=== PATIENT | female | born 1975 | race Caucasian/White ===

== ENCOUNTER 2020-05-28 12:24 | Outpatient (REF) | payer MEDICAID, SELFPAY | END 2020-05-28 12:25 | disposition home or self-care (01) | LOC: HO.LAB 12:24 | PROVIDERS: Visit Provider Internal Medicine | DX: Z20.828 Contact with and (suspected) exposure to other viral communicable diseases (principal) | CPT/HCPCS: 87635 ==

== ENCOUNTER 2020-09-13 14:50 | Outpatient (REF) | payer MEDICAID, SELFPAY ==
--- NOTE | 2020-09-13 | MM_ITS ---
EXAMINATION: MM SCREENING DIGITAL BREAST TOMOSYNTHESIS, BILATERAL CLINICAL INFORMATION: Screening. Asymptomatic. The lifetime risk of breast cancer based on the Tyrer-Cuzick Model is 9.2%. COMPARISON: Mammography: January 14, 2019 and December 26, 2017 TECHNIQUE: Digital breast tomosynthesis is performed in both the craniocaudal and mediolateral oblique views along with computer-aided detection (CAD). Synthesized 2D images are generated from the tomosynthesis. FINDINGS: The breasts are heterogeneously dense, which may obscure small masses (ACR BI-RADS breast composition Category c). There are no significant masses, abnormal calcifications, or other abnormalities. MM/MM tomosynthesis screening BI IMPRESSION: There are no significant changes from prior study. ASSESSMENT: BI-RADS 1: Negative RECOMMENDATION: Routine annual mammography screening. This patient's information was entered into a reminder system with a target due date for their next mammogram.
== END 2020-09-13 14:51 | disposition home or self-care (01) ==
LOC: HO.MAMMO 14:50
PROVIDERS: PCP Student in an Organized Health Care Education/Training Program; Visit Provider Student in an Organized Health Care Education/Training Program
DX: Z12.31 Encounter for screening mammogram for malignant neoplasm of breast (principal)
CPT/HCPCS: 77063; 77067

== ENCOUNTER → 2021-02-02 13:42 | Outpatient (BNVA) | payer MEDICAID, SELFPAY | PROVIDERS: PCP Student in an Organized Health Care Education/Training Program; Visit Provider Orthopaedic Surgery | DX: M65.331 Trigger finger, right middle finger (principal) | CPT/HCPCS: 20550; 99202; J1100 ==

== ENCOUNTER 2021-02-11 08:27 | Outpatient (REF) | payer MEDICAID, SELFPAY ==
--- NOTE | ~2021-02-11 | XR_ITS ---
EXAMINATION: XR knee standing BI, XR knee RT 2V, XR knee LT 2V CLINICAL INFORMATION: Pain in right knee. Pain in left knee. COMPARISON: None TECHNIQUE: AP bilateral standing, bilateral sunrise and bilateral lateral views of the knees. FINDINGS: Both of the lateral views were obtained with the knees fully extended, not with standard 30 degrees of flexion. No fracture, dislocation, or joint effusion seen bilaterally. Joint spaces are maintained. Mild right lateral patellar subluxation. XR/XR knee standing BI IMPRESSION: Mild right lateral patellar subluxation. Otherwise normal views of the knees bilaterally.
--- NOTE | ~2021-02-11 | XR_ITS ---
EXAMINATION: XR knee standing BI, XR knee RT 2V, XR knee LT 2V CLINICAL INFORMATION: Pain in right knee. Pain in left knee. COMPARISON: None TECHNIQUE: AP bilateral standing, bilateral sunrise and bilateral lateral views of the knees. FINDINGS: Both of the lateral views were obtained with the knees fully extended, not with standard 30 degrees of flexion. No fracture, dislocation, or joint effusion seen bilaterally. Joint spaces are maintained. Mild right lateral patellar subluxation. XR/XR knee LT 2V IMPRESSION: Mild right lateral patellar subluxation. Otherwise normal views of the knees bilaterally.
--- NOTE | ~2021-02-11 | XR_ITS ---
EXAMINATION: XR knee standing BI, XR knee RT 2V, XR knee LT 2V CLINICAL INFORMATION: Pain in right knee. Pain in left knee. COMPARISON: None TECHNIQUE: AP bilateral standing, bilateral sunrise and bilateral lateral views of the knees. FINDINGS: Both of the lateral views were obtained with the knees fully extended, not with standard 30 degrees of flexion. No fracture, dislocation, or joint effusion seen bilaterally. Joint spaces are maintained. Mild right lateral patellar subluxation. XR/XR knee RT 2V IMPRESSION: Mild right lateral patellar subluxation. Otherwise normal views of the knees bilaterally.
== END 2021-02-11 08:28 | disposition home or self-care (01) ==
LOC: HO.LAB 08:27
PROVIDERS: PCP Student in an Organized Health Care Education/Training Program; Visit Provider Physician Assistant
DX: M25.562 Pain in left knee (principal); M17.11 Unilateral primary osteoarthritis, right knee
CPT/HCPCS: 73560; 73565; 99202

== ENCOUNTER 2021-02-25 08:29 | Outpatient (REF) | payer MEDICAID, SELFPAY ==
[2021-02-26 13:42] LABS: H Pylori Breath Test DETECTED (NOT DETECTED)
== END 2021-02-25 08:30 | disposition home or self-care (01) ==
LOC: HO.LNP 08:29
PROVIDERS: PCP Student in an Organized Health Care Education/Training Program; Visit Provider Surgery
DX: Z01.818 Encounter for other preprocedural examination (principal); R07.9 Chest pain, unspecified; E66.9 Obesity, unspecified; Z68.39 Body mass index [BMI] 39.0-39.9, adult
CPT/HCPCS: 83013; 99202

== ENCOUNTER 2021-03-04 09:10 | Outpatient (REF) | payer MEDICAID, SELFPAY ==
--- NOTE | ~2021-03-04 | XR_ITS ---
EXAMINATION: XR CHEST CLINICAL INFORMATION: Shortness of breath COMPARISON: Previous chest and right rib x-ray April 2020 TECHNIQUE: 2 views of the chest were obtained. FINDINGS: No significant abnormality is noted involving the heart, lungs, mediastinum, bony thorax or soft tissues. XR/XR chest 2V IMPRESSION: Unremarkable examination.
--- NOTE | 2021-03-04 09:42 | ECG_ITS ---
Test Reason : SOB Blood Pressure : / mmHG Vent. Rate : 084 BPM Atrial Rate : 084 BPM P-R Int : 100 ms QRS Dur : 096 ms QT Int : 420 ms P-R-T Axes : 026 028 023 degrees QTc Int : 496 ms Sinus rhythm with short KS Nonspecific ST abnormality Prolonged QT Abnormal ECG No previous ECGs available Referred By: Melvi Salazar Electronically Signed By:
[2021-03-04 10:19] LABS: Hematocrit 38.3 % (37-47); Neutrophils Percent Auto 47.3 % (45-73); PLT CLUMP 1; Red Cell Distribution Width 14.1 % (11.0-16.0); SCAN SMEAR FLAG 1
[2021-03-04 10:21] LABS: Basophils Percent Auto 0.4 % (0-2); Eosinophils Absolute Auto 0.1 X10*3/uL (0.0-0.4); Eosinophils Percent Auto 2.1 % (0-4); Hemoglobin 12.7 g/dl (12.0-16.0); Imm Gran Abs Auto 0.01 X10*3/uL (0.00-0.03); Imm Gran Pct Auto 0.2 % (0.0-0.4); Lymphocytes Absolute Auto 2.4 X10*3/uL (1.2-4.9); Lymphocytes Percent Auto 41.9 % (20-40); Mean Corpuscular HGB Conc 33.2 g/dl (31.0-35.0); Mean Corpuscular Hemoglobin 27.9 pg (27.0-33.0); Monocytes Absolute Auto 0.5 X10*3/uL (0.1-1.2); Monocytes Percent Auto 8.1 % (2-11); Neutrophils Absolute Auto 2.7 X10*3/uL (2.0-8.3); Platelet Count 220 X10*3/uL (160-400); Red Blood Count 4.56 X10*6/uL (4.20-5.50); White Blood Count 5.7 X10*3/uL (4.8-10.8)
[2021-03-04 10:32] LABS: MANUAL DIFF FLAG SCAN
[2021-03-04 10:37] LABS: Alanine Aminotransferase 18 U/L (0-31); Albumin Level 4.5 g/dL (3.5-5.0); Alkaline Phosphatase 107 U/L (39-117); Anion Gap 13 (12-20); Aspartate Amino Transferase 23 U/L (5-31); Bilirubin Total 0.6 mg/dL (0.0-1.0); Blood Urea Nitrogen 20 mg/dL (9-16); C Reactive Protein 0.45 mg/dL (< or = 0.50); Calcium 9.6 mg/dL (8.4-10.2); Carbon Dioxide 26 mmol/L (22-29); Chloride 106 mmol/L (96-108); Cholesterol 220 mg/dL; Estimated Glomerular Filt Rate > 60; Glucose Fasting 92 mg/dL (60-99); HDL Cholesterol 60 mg/dL; Iron 70 mcg/dL (30-160); LDL Cholesterol Calculated 141 mg/dl; Percent Iron Saturation 18 % (15-50); Potassium 4.2 mmol/L (3.3-5.1); Sodium 141 mmol/L (135-145); Total Iron Binding Capacity 383 mcg/dL (228-428); Total Protein 7.7 g/dL (6.5-8.0); Triglycerides 95 mg/dL; Unsaturated Iron Binding 313 ug/dL
[2021-03-04 10:47] LABS: Estimated Average Glucose 117 mg/dL; Hemoglobin A1c % 5.7 %
[2021-03-04 11:01] LABS: Thyroid Stimulating Hormone 3.88 uIU/mL (0.32-4.0); Vitamin D 25-OH Total 18.1 ng/mL (>30)
[2021-03-04 11:08] LABS: SLIDE REVIEW VERIFIED
[2021-03-04 11:49] LABS: Vitamin B12 562 pg/mL (200-900)
[2021-03-07 16:20] LABS: Calcium (PTHI) 9.4 mg/dL (8.6-10.2); PTHI 72 pg/mL (14-64)
[2021-03-09 01:42] LABS: Zinc 71 mcg/dL (60-130)
[2021-03-09 11:56] LABS: Vitamin B1 9 nmol/L (8-30)
[2021-03-10 03:32] LABS: Vitamin A 48 mcg/dL (38-98)
== END 2021-03-04 09:11 | disposition home or self-care (01) ==
LOC: HO.LAB 09:10
PROVIDERS: Visit Provider Surgery
DX: Z01.818 Encounter for other preprocedural examination (principal); R06.02 Shortness of breath; R94.31 Abnormal electrocardiogram [ECG] [EKG]; K91.2 Postsurgical malabsorption, not elsewhere classified; E55.9 Vitamin D deficiency, unspecified; Z90.3 Acquired absence of stomach [part of]
CPT/HCPCS: 36415; 71046; 80053; 80061; 82306; 82607; 83036; 83540; 83970; 84425; 84443; 84590; 84630; 85025; 86140; 93005

== ENCOUNTER → 2021-03-08 08:09 | Outpatient (BNVA) | payer MEDICAID, SELFPAY | PROVIDERS: PCP Student in an Organized Health Care Education/Training Program; Visit Provider Surgery | DX: E66.9 Obesity, unspecified (principal); Z68.38 Body mass index [BMI] 38.0-38.9, adult | CPT/HCPCS: 99212 ==

== ENCOUNTER → 2021-03-25 08:00 | Outpatient (BNVA) | payer MEDICAID, SELFPAY | PROVIDERS: PCP Student in an Organized Health Care Education/Training Program; Visit Provider Dietitian, Registered | DX: E66.09 Other obesity due to excess calories (principal); F41.8 Other specified anxiety disorders; F31.9 Bipolar disorder, unspecified; Z68.37 Body mass index [BMI] 37.0-37.9, adult; Z88.6 Allergy status to analgesic agent | CPT/HCPCS: 97802 ==

== ENCOUNTER → 2021-04-14 11:10 | Outpatient (BNVA) | payer MEDICAID, SELFPAY | PROVIDERS: PCP Student in an Organized Health Care Education/Training Program; Visit Provider Internal Medicine Cardiovascular Disease | DX: Z01.818 Encounter for other preprocedural examination (principal); R07.89 Other chest pain | CPT/HCPCS: 93005; 99202 ==

== ENCOUNTER → 2021-05-05 10:41 | Outpatient (BNVA) | payer MEDICAID, SELFPAY | PROVIDERS: PCP Student in an Organized Health Care Education/Training Program; Visit Provider Surgery | DX: E66.9 Obesity, unspecified (principal); Z68.36 Body mass index [BMI] 36.0-36.9, adult | CPT/HCPCS: 99212 ==

== ENCOUNTER → 2021-07-04 10:24 | Outpatient (BNVA) | payer MEDICAID, SELFPAY | PROVIDERS: PCP Student in an Organized Health Care Education/Training Program; Referring Provider Student in an Organized Health Care Education/Training Program; Visit Provider Physician Assistant Surgical | DX: E66.9 Obesity, unspecified (principal); Z68.36 Body mass index [BMI] 36.0-36.9, adult | CPT/HCPCS: 99212 ==

== ENCOUNTER 2021-07-06 15:59 | Outpatient (REF) | payer MEDICAID, SELFPAY ==
[2021-07-08 07:18] LABS: H Pylori Breath Test Negative (Negative)
== END 2021-07-06 16:00 | disposition home or self-care (01) ==
LOC: HO.LNP 15:59
PROVIDERS: Visit Provider Surgery
DX: Z01.818 Encounter for other preprocedural examination (principal); A04.8 Other specified bacterial intestinal infections
CPT/HCPCS: 83013

== ENCOUNTER 2021-08-13 14:33 | Outpatient (REF) | payer MEDICAID, SELFPAY ==
[2021-08-13 16:12] LABS: Binax Internal Control QC Valid; Binax Lot number: 9864; Binax Now Covid-19 Ag Negative (Negative)
== END 2021-08-13 14:34 | disposition home or self-care (01) ==
LOC: HO.LAB 14:33
PROVIDERS: Visit Provider Internal Medicine
DX: Z20.822 Contact with and (suspected) exposure to COVID-19 (principal)
CPT/HCPCS: 36415; C9803

== ENCOUNTER 2022-03-16 10:44 | Outpatient (REF) | payer MEDICAID, SELFPAY ==
[2022-03-18 11:15] LABS: H Pylori Breath Test Negative (Negative)
== END 2022-03-16 10:45 | disposition home or self-care (01) ==
LOC: HO.LNP 10:44
PROVIDERS: PCP Student in an Organized Health Care Education/Training Program; Visit Provider Physician Assistant Surgical
DX: E66.9 Obesity, unspecified (principal)
CPT/HCPCS: 83013; 99212

== ENCOUNTER 2022-04-12 08:25 | Outpatient (REF) | payer MEDICAID, SELFPAY ==
--- NOTE | 2022-04-12 08:30 | ECG_ITS ---
Test Reason : obesity Blood Pressure : / mmHG Vent. Rate : 091 BPM Atrial Rate : 091 BPM P-R Int : 140 ms QRS Dur : 090 ms QT Int : 408 ms P-R-T Axes : 060 046 047 degrees QTc Int : 501 ms Normal sinus rhythm Prolonged QT Abnormal ECG When compared with ECG of 04-MAR-2021 09:48, No significant change was found Referred By: Ronal Lundberg Electronically Signed By:VARGAS MUNSON
[2022-04-12 08:45] LABS: MANUAL DIFF FLAG NO
[2022-04-12 09:37] LABS: Basophils Percent Auto 0.5 % (0-2); Eosinophils Absolute Auto 0.3 X10*3/uL (0.0-0.4); Eosinophils Percent Auto 5.3 % (0-4); Hematocrit 37.6 % (37.0-47.0); Hemoglobin 12.7 g/dl (12.0-16.0); Imm Gran Abs Auto 0.01 X10*3/uL (0.00-0.03); Imm Gran Pct Auto 0.2 % (0.0-0.4); Lymphocytes Absolute Auto 2.5 X10*3/uL (1.2-4.9); Lymphocytes Percent Auto 40.1 % (20-40); Mean Corpuscular HGB Conc 33.8 g/dl (31.0-35.0); Mean Corpuscular Hemoglobin 28.7 pg (27.0-33.0); Mean Corpuscular Volume 84.9 fL (80.0-98.0); Mean Platelet Volume 10.5 fL (9.4-12.3); Monocytes Absolute Auto 0.4 X10*3/uL (0.1-1.2); Neutrophils Percent Auto 47.9 % (45-73); Platelet Count 253 X10*3/uL (160-400); Red Blood Count 4.43 X10*6/uL (4.20-5.50); Red Cell Distribution Width 13.3 % (11.0-16.0); White Blood Count 6.2 X10*3/uL (4.8-10.8)
[2022-04-12 09:45] LABS: Estimated Average Glucose 105 mg/dL; Hemoglobin A1c % 5.3 %
[2022-04-12 10:07] LABS: Alanine Aminotransferase 10 U/L (0-31); Albumin Level 4.2 g/dL (3.5-5.0); Alkaline Phosphatase 79 U/L (39-117); Anion Gap 14 (12-20); Aspartate Amino Transferase 15 U/L (5-31); Bilirubin Total 0.5 mg/dL (0.0-1.0); Blood Urea Nitrogen 11 mg/dL (9-16); C Reactive Protein 0.61 mg/dL (< or = 0.50); Calcium 8.7 mg/dL (8.4-10.2); Carbon Dioxide 25 mmol/L (22-29); Chloride 105 mmol/L (96-108); Cholesterol 225 mg/dL; Estimated Glomerular Filt Rate > 60; Glucose Random 94 mg/dL (60-115); HDL Cholesterol 56 mg/dL; Iron 54 mcg/dL (30-160); LDL Cholesterol Calculated 145 mg/dl; Percent Iron Saturation 16 % (15-50); Potassium 3.7 mmol/L (3.3-5.1); Sodium 140 mmol/L (135-145); Total Iron Binding Capacity 330 mcg/dL (228-428); Triglycerides 121 mg/dL; Unsaturated Iron Binding 276 ug/dL
[2022-04-12 10:35] LABS: Ferritin 21 ng/mL (10-250); TSH reflex Free T4 6.07 uIU/mL (0.32-4.0); Vitamin D 25-OH Total 17.1 ng/mL (>30)
[2022-04-12 10:47] LABS: Folate 10.3 ng/mL (> or = 4.0); Vitamin B12 471 pg/mL (200-900)
[2022-04-12 11:09] LABS: Free T4 (Free Thyroxine) 0.94 ng/dL (0.71-1.85); Insulin 16 uU/mL (2-29)
[2022-04-13 12:26] LABS: PTHI 62 pg/mL (16-77)
[2022-04-15 15:20] LABS: Zinc 66 mcg/dL (60-130)
[2022-04-17 13:37] LABS: Vitamin B1 9 nmol/L (8-30)
[2022-04-20 20:26] LABS: Vitamin A 48 mcg/dL (38-98)
== END 2022-04-12 08:26 | disposition home or self-care (01) ==
LOC: HO.LAB 08:25
PROVIDERS: PCP Student in an Organized Health Care Education/Training Program; Visit Provider Physician Assistant Surgical
DX: E66.9 Obesity, unspecified (principal)
CPT/HCPCS: 36415; 80053; 80061; 82306; 82607; 82728; 82746; 83036; 83525; 83540; 83970; 84425; 84439; 84443; 84590; 84630; 85025; 86140; 93005

== ENCOUNTER 2022-04-13 09:27 | Outpatient (REF) | payer MEDICAID, SELFPAY ==
--- NOTE | ~2022-04-13 | FL_ITS ---
EXAMINATION: XR FLUOROSCOPY UPPER GI WITH AIR CLINICAL INFORMATION: Obesity COMPARISON: None TECHNIQUE: Fluoroscopic assessment of the upper GI tract was performed in various upright and supine/prone obliquities utilizing thin and thick high density barium contrast material and effervescent granules. FINDINGS: The esophagus was normal in course, caliber, and contour. There was normal distensibility with no fixed segment of narrowing. No focal mucosal abnormality was identified. No significant esophageal dysmotility was observed. Contrast passed freely across the gastroesophageal junction into the stomach. Small sliding hiatal hernia. This spans the length of approximately 2 vertebral bodies. There was normal distensibility of the stomach with no focal abnormality identified. There was prompt gastric emptying into the duodenum which demonstrated a normal appearance. No gastroesophageal reflux was observed. FLUOROSCOPY TIME: 0.9 minutes DOSE AREA PRODUCT: 18.792 Gy-cm2 (conn-centimeter squared) FL/FL upper GI w air IMPRESSION: Small sliding hiatal hernia. Otherwise unremarkable upper GI examination.
--- NOTE | ~2022-04-13 | XR_ITS ---
EXAMINATION: XR CHEST CLINICAL INFORMATION: Bariatric service evaluation, E66.9. COMPARISON: Chest radiographs 03/04/2021, 05/07/2020 TECHNIQUE: 2 views of the chest were obtained. FINDINGS: Lungs are clear. There is no hyperinflation, airspace consolidation, groundglass opacity, or effusion. The costophrenic sulci are clear. The heart is normal in size. The hilar and mediastinal contours and bony structures are unremarkable. XR/XR chest 2V IMPRESSION: Unremarkable examination.
== END 2022-04-13 09:28 | disposition home or self-care (01) ==
LOC: HO.US 09:27
PROVIDERS: PCP Student in an Organized Health Care Education/Training Program; Visit Provider Pediatrics
DX: E66.9 Obesity, unspecified (principal)
CPT/HCPCS: 71046; 74246; 97802

== ENCOUNTER 2022-04-21 08:10 | Outpatient (REF) | payer MEDICAID, SELFPAY ==
--- NOTE | ~2022-04-21 | US_ITS ---
EXAMINATION: US COMPLETE ABDOMEN WITH LIVER ELASTOGRAPHY CLINICAL INFORMATION: Obesity. COMPARISON: None. TECHNIQUE: Real-time imaging of the abdominal viscera. Noninvasive ultrasound liver fibrosis assessment is performed using Jean ElastPQ point quantification shear wave elastography (2D-SWE) with a C5-2 MHz transducer. Multiple elastography samples are obtained. FINDINGS: PANCREAS: The pancreatic duct measures 0.2 cm and is unremarkable. The visualized pancreatic head and body are normal in appearance. The remainder of the pancreas is obscured from visualization by the overlying bowel gas. ABDOMINAL AORTA: The proximal, middle, and distal aortic segments are normal in caliber. INFERIOR VENA CAVA: Visualized portions are normal. LIVER: Normal. The liver demonstrates normal size, contour and echogenicity. No focal lesion or intrahepatic biliary duct dilatation. The right lobe measures 17.1 cm in length. The left lobe measures 12.3 cm in length. Portal flow is hepatopedal. Shear wave liver elastography median stiffness is 1.34 m/s (reference: normal median stiffness is 1.3 m/s or less). IQR/median stiffness to assess sampling precision is 0.06 (reference: good quality data set is IQR/median stiffness of 0.15 or less). GALLBLADDER: The gallbladder is physiologically distended without evidence of stones, sludge, wall thickening or pericholecystic fluid. There are nonmobile echogenic polyps measuring 0.4 x 0.2 x 0.3 cm. COMMON BILE DUCT: Normal in caliber measuring 0.7 cm in diameter. RIGHT KIDNEY: Normal. No hydronephrosis. No renal calculi or focal parenchymal lesions. The kidney measures 10.7 cm in maximum dimension. LEFT KIDNEY: There is an echogenic stone in the upper pole measuring 0.7 x 0.4 x 0.5 cm. The kidney measures 10.2 cm in maximum dimension. SPLEEN: Normal. The spleen measures 10.3 cm in maximum dimension. FREE FLUID: None. US/US abdomen comp w elastography IMPRESSION: 1. Small gallbladder polyp. No echogenic stones or wall thickening. 2. Normal echogenicity of liver with normal hepatopedal flow. 3. Nonobstructive echogenic stone upper pole left kidney. 4. Liver elastography: Median liver stiffness 1.34 corresponding to high probability normal . REFERENCE: Society of Radiologists in Ultrasound Liver Stiffness Thresholds (2019): LIVER STIFFNESS THRESHOLDS: *Liver Stiffness equal or less than 1.3 m/s: High probability of being normal. *Liver Stiffness less than 1.7 m/s: In the absence of other known clinical signs, rules out compensated advanced chronic liver disease. *Liver Stiffness 1.7-2.1 m/s: Suggestive of compensated advanced chronic liver disease but need further test for confirmation. *Liver Stiffness over 2.1 m/s: Rules in compensated advanced chronic liver disease. *Liver Stiffness over 2.4 m/s: Suggestive of clinically significant portal hypertension. QUALITY OF DATA SET: *IQR/Median value equal or less than 0.15 implies a quality data set. *IQR/Median value over 0.15 implies a poor quality data set. SIGNIFICANT CHANGE FROM PRIOR EXAM: Significant change if liver stiffness measurement is 10% or greater from prior exam. OTHER CONSIDERATIONS: The stage of liver fibrosis may be overestimated in the setting of acute hepatitis, liver inflammation, elevated liver function tests, hepatic vascular congestion, obstructive cholestasis, non-fasting state, and infiltrative diseases such as amyloidosis and lymphoma. In some patients with NAFLD, the liver stiffness thresholds for compensated advanced chronic liver disease may be lower. In causes other than viral hepatitis and NAFLD, liver stiffness thresholds are not well established.
== END 2022-04-21 08:11 | disposition home or self-care (01) ==
LOC: HO.US 08:10
PROVIDERS: Visit Provider Physician Assistant Surgical
DX: E66.9 Obesity, unspecified (principal)
CPT/HCPCS: 76705; 76981

== ENCOUNTER → 2022-04-26 09:47 | Outpatient (BNVA) | payer MEDICAID, SELFPAY | PROVIDERS: PCP Student in an Organized Health Care Education/Training Program; Referring Provider Student in an Organized Health Care Education/Training Program; Visit Provider Physician Assistant Surgical | DX: E66.9 Obesity, unspecified (principal); Z68.38 Body mass index [BMI] 38.0-38.9, adult; F32.9 Major depressive disorder, single episode, unspecified; E03.9 Hypothyroidism, unspecified | CPT/HCPCS: 99212 ==

== ENCOUNTER → 2022-05-01 08:59 | Outpatient (BNVA) | payer MEDICAID, SELFPAY | PROVIDERS: PCP Student in an Organized Health Care Education/Training Program; Referring Provider Student in an Organized Health Care Education/Training Program; Visit Provider Internal Medicine Cardiovascular Disease | DX: Z01.818 Encounter for other preprocedural examination (principal); R94.31 Abnormal electrocardiogram [ECG] [EKG] | CPT/HCPCS: 93005; 99212 ==

== ENCOUNTER → 2022-06-05 08:25 | Outpatient (BNVA) | payer MEDICAID, SELFPAY | PROVIDERS: PCP Student in an Organized Health Care Education/Training Program; Visit Provider Physician Assistant Surgical | DX: E66.9 Obesity, unspecified (principal); E03.9 Hypothyroidism, unspecified; Z68.38 Body mass index [BMI] 38.0-38.9, adult | CPT/HCPCS: 99212 ==

== ENCOUNTER → 2022-06-08 09:09 | Outpatient (BNVA) | payer MEDICAID, SELFPAY | PROVIDERS: PCP Student in an Organized Health Care Education/Training Program; Referring Provider Physician Assistant Surgical; Visit Provider Dietitian, Registered | DX: E66.9 Obesity, unspecified (principal); Z68.38 Body mass index [BMI] 38.0-38.9, adult | CPT/HCPCS: 97803 ==

== ENCOUNTER → 2023-04-25 08:19 | Outpatient (BNVA) | payer MEDICAID, SELFPAY | PROVIDERS: PCP Student in an Organized Health Care Education/Training Program; Visit Provider Physician Assistant Surgical ==

== ENCOUNTER 2023-05-25 08:47 | Outpatient (REF) | payer MEDICAID, SELFPAY ==
[2023-05-25 09:48] LABS: MANUAL DIFF FLAG NO
[2023-05-25 11:26] LABS: Basophils Percent Auto 0.3 % (0-2); Eosinophils Absolute Auto 0.2 X10*3/uL (0.0-0.4); Hematocrit 41.2 % (37.0-47.0); Hemoglobin 13.3 g/dl (12.0-16.0); Imm Gran Abs Auto 0.03 X10*3/uL (0.00-0.03); Imm Gran Pct Auto 0.5 % (0.0-0.4); Lymphocytes Absolute Auto 2.1 X10*3/uL (1.2-4.9); Lymphocytes Percent Auto 32.9 % (20-40); Mean Corpuscular HGB Conc 32.3 g/dl (31.0-35.0); Mean Corpuscular Hemoglobin 28.5 pg (27.0-33.0); Mean Corpuscular Volume 88.2 fL (80.0-98.0); Mean Platelet Volume 10.3 fL (9.4-12.3); Monocytes Absolute Auto 0.4 X10*3/uL (0.1-1.2); Monocytes Percent Auto 6.4 % (2-11); Neutrophils Absolute Auto 3.7 x10*3/uL (2.0-8.3); Neutrophils Percent Auto 56.9 % (45-73); Platelet Count 291 X10*3/uL (160-400); Red Blood Count 4.67 X10*6/uL (4.20-5.50); Red Cell Distribution Width 13.3 % (11.0-16.0); White Blood Count 6.4 X10*3/uL (4.8-10.8)
[2023-05-25 12:05] LABS: Estimated Average Glucose 120 mg/dL; Hemoglobin A1c % 5.8 % (<6.0)
[2023-05-25 12:38] LABS: Alanine Aminotransferase 14 U/L (0-31); Albumin Level 4.4 g/dL (3.5-5.0); Alkaline Phosphatase 71 U/L (39-117); Anion Gap 14 (12-20); Aspartate Amino Transferase 14 U/L (5-31); Bilirubin Total 0.4 mg/dL (0.0-1.0); Blood Urea Nitrogen 15 mg/dL (9-16); C Reactive Protein 0.79 mg/dL (< or = 0.50); Calcium 9.9 mg/dL (8.4-10.2); Carbon Dioxide 24 mmol/L (22-29); Chloride 106 mmol/L (96-108); Cholesterol 237 mg/dL (<200); Estimated Glomerular Filt Rate > 60; Glucose Random 101 mg/dL (60-115); HDL Cholesterol 57 mg/dL (>40); Iron 58 mcg/dL (30-160); LDL Cholesterol Calculated 149 mg/dL (<100); Percent Iron Saturation 20 % (15-50); Potassium 4.4 mmol/L (3.3-5.1); Sodium 140 mmol/L (135-145); Total Iron Binding Capacity 295 mcg/dL (228-428); Total Protein 7.8 g/dL (6.5-8.0); Triglycerides 155 mg/dL (<150); Unsaturated Iron Binding 237 ug/dL
[2023-05-25 12:42] LABS: Ferritin 29 ng/mL (10-250); Insulin 39 uU/mL (2-29); TSH reflex Free T4 3.47 uIU/mL (0.32-4.0)
[2023-05-25 12:55] LABS: Folate 8.7 ng/mL (> or = 4.0); Vitamin B12 307 pg/mL (200-900)
[2023-05-28 23:44] LABS: Calcium (PTHI) 9.7 mg/dL (8.6-10.2); PTHI 56 pg/mL (16-77)
[2023-05-29 01:12] LABS: Zinc 78 mcg/dL (60-130)
[2023-05-30 04:49] LABS: Vitamin A 60 mcg/dL (38-98)
[2023-05-30 15:19] LABS: Vitamin B1 12 nmol/L (8-30)
== END 2023-05-25 08:48 | disposition home or self-care (01) ==
LOC: HO.LAB 08:47
PROVIDERS: PCP Student in an Organized Health Care Education/Training Program; Visit Provider Physician Assistant Surgical
DX: E66.01 Morbid (severe) obesity due to excess calories (principal); Z68.38 Body mass index [BMI] 38.0-38.9, adult
CPT/HCPCS: 36415; 80053; 80061; 82306; 82607; 82728; 82746; 83036; 83525; 83540; 83970; 84425; 84443; 84590; 84630; 85025; 86140; 99212

== ENCOUNTER 2023-05-25 08:47 | Outpatient (AMB) | payer MEDICAID, SELFPAY ==
--- NOTE | 2023-05-25 08:49 | MHC.OFFVISWM ---
Intake VS Expanded 05/25/23 08:55 BP 136/73 Blood Pressure Location Rt brachial Blood Pressure Position Sitting Pulse 88 Pulse Source Pulse Oximeter Temp 96.8 F Temperature Source Temporal Artery Scan Pulse Oximetry 98 Oxygen Delivery Method Room Air Height 4 ft 9 in Weight 203 lb 12.8 oz BMI 44.1 Body Fat % 47.0 Body Fat Mass 95.6 Fat Free Mass 108.0 Visceral Fat Rating 15.0 Body Water % 37.9 Body Water Mass 77.2 Muscle Mass/Score 102.6 Basal Metabolic Rate/Score 1,537 Intake Visit Reasons: (OV) Re-Est SWL BMI 44.3 Day Care Home Provider Required: Yes Day Care Home Provider Name: office cmi Allergies aspirin [ASPIRIN] Allergy (Severe, Verified 05/25/23 08:53) ANAPHYLAXIS Medication List - Last Reconciled 05/25/23 by JARRETT Esteban aripiprazole 10 mg PO DAILY cholecalciferol (vitamin D3) 125 mcg PO DAILY doxepin 150 mg PO BEDTIME levothyroxine 25 mcg PO QAM lorazepam (Ativan) 1 mg PO DAILY PRN pantoprazole 40 mg PO DAILY venlafaxine ER 150 mg PO QAM HPI HPI Comments History of Present Illness Details [place] is [place] [facility] [place]. This is the third attempt at our program. She was seen 03/02-07/04 (14.6 pound weight loss), 04/03-06/03 (5 pound weight loss). She had family problems and had to take care of her mom. Her mom on May 13 and encouraged her to lose weight. Current weight is 203.8 pounds with a BMI of 44.1. She has tried multiple methods of weight loss including multiple attempts at our SWL program without permanent results. She is not currently working. She wakes at:?530 am, and goes to bed at?9 pm. Dinner is at 5 pm. Breakfast: coffee w 2 % milk and splenda AM snack: crackers Lunch: skip PM snack: skip Dinner: rice beans meat or fast food After dinner: cake, crackers Other snacks: as above Liquids: 64-80 oz water, no soda, no juice Alcohol/marijuana/tobacco intake: none Exercise: none, has treadmill at home [facility] Medical History Bipolar disorder Depression Anxiety Surgical History History of tubal ligation History of 2 sections Family History Mother Diabetes Hx of heart surgery Hypertension High cholesterol Father Heart attack Brother Hypertension Sister Hypertension Sister Hypertension Daughter No problems noted. Son No problems noted. Son No problems noted. Social History Alcohol intake: former Patient Tobacco Use Status: Never used Tobacco Current occupational status: employed and unemployed Current occupation: [employer] Current occupational exposures/hazards: No Physical Exam Vital Signs: Last Vital Signs Temp 96.8 F 05/25/23 08:55 Pulse 88 05/25/23 08:55 BP 136/73 05/25/23 08:55 Pulse Ox 98 05/25/23 08:55 Oxygen Delivery Method Room Air 05/25/23 08:55 BMI result Body Mass Index 44.1 Const General: cooperative, healthy appearing and no acute distress Orientation/consciousness: patient oriented x3 HEENT Head: Yes normal to inspection Ears: hearing grossly normal bilaterally General nose exam: Normal external nose present Face and sinus: Yes normal facial exam Eyes General: appearance normal, both eyes and all related structures Resp Effort & Inspection: normal respiratory effort Auscultation: clear to auscultation bilaterally Cardio Rate: regular rate Rhythm: regular rhythm Heart sounds: S1 normal heart sound present and S2 normal heart sound present GI Inspection: Yes normal to inspection, No distended and Yes obesity Palpation (GI): Soft to palpation, nontender and no guarding Auscultation: normal bowel sounds Skin General skin exam: no rashes or lesions noted Neuro General: patient oriented x3 Extrem General: No edema Psych Appearance: grossly normal Mental Status: mental status grossly normal Speech and movement: Normal speech and movement present Affect: normal affect Attitude: cooperative Assessment & Plan Assessment & Plan (1) Morbid obesity: Code(s): E66.01 - Morbid (severe) obesity due to excess calories Plan: This is a?47 yo female who will re-start our SWL program to prepare for bariatric surgery.? It was discussed with the patient that if she is able to show commitment over the next 1 month, we will then order the standard lood work, h pylori , CXR, ECG, Abd US and UGI. She will be scheduled for RD and BH initial consultations at her next appointment she is able to show commitment. ? Adequate sleep of 7-8 hours per night discussed, awakening at 530 am and going to bed at 9 pm ? You stated you still have your body composition scale so be sure and check weight weekly. The best time to do this is first thing in the morning after going to the bathroom. 1. Nutritional counseling: Be sure to careful read the number of scoops per shake Start with 2 Celebrate Rebuild shakes ([facility] [employer], [employer], [employer]), First shake (1 scoop in 10 oz unsweetened almond milk) at 630am-830am, Second shake, (1 scoop in 10 oz unsweetened almond milk) at 930am-1130am 2 protein bars ([employer] bars at [facility] [employer], [employer], [employer]) at 1230pm-230pm, and at 330pm-530pm Dinner at 630pm (7 forks of protein and 7 forks of salad/vegetables). Meal to include lean meat (beef, fish, pork, turkey, chicken), cooked vegetables or a salad with olive oil and/or fruits (berries, pears, apples, kiwi). Avoid salt, breads, potatoes, rice, pasta, desserts. Try to drink 64 oz of water daily and avoid soda and juices. ?2. Each shake would be drunk slowly, like coffee in a period of 2 hours. ?3. Cut each bar in 4 pieces and eat each piece in 30 min ?to make each bar last 2 hours. ?4. I emphasized the importance of measuring accurately the food portion and measure it carefully when serving the food on the plate ?5. The meal portions include 7 full-size forks of meat and 7 full-size forks of salad. You always eat the meat portion but you can replace up to half of the forks of salad/vegetables with rice, potatoes or pasta, or a fruit ?if you like. The less you do it the better weight loss will be. ?6. One full-size fork is what can be scooped on the fork without falling aside and not what can be bit with the fork. Use regular forks like those you find in a typical restaurant. ?7.? Please send me weight measurements as soon as possible and then once a week. Always include your diet and exercise plan. Alternatively come weekly at the office for weight checks and send me the measurements. ?8. Exercise counseling: Begin by watching a stretching for beginners video. Start slowly and begin to stretch your muscles. You should do this before and after each exercise session to prevent injury. Consider joining [employer] gym near your home. Ask the manager machine or one of the trainers how to use the machines if you are unfamiliar with them. Start elliptical with a resistance of 2. Increase resistance by 1 every 3 min to your most comfortable resistance with a max resistance of 8. Reduce the resistance by 1 every 3 minutes back down to 2 and repeat cycles for 300 calories. Alternatively, start using the treadmill you have at home with a speed of 3.0 and incline of 0, increasing incline by 1 every 3 minutes to the highest comfortable level (max 6 for now) then decrease in the same fashion. Repeat process to a goal of 300 calories. Goal of 2000 calories burned or more weekly. You may also consider use of the stationary bike. The easiest would be to chose the fat-burn or interval training program on the machine and do this until you reach the 300 calorie goal. Alternatively, you can manually adjust the resistance in a similar fashion as mentioned above, (resistance of 2-8 with a goal speed of 12 mph). Tracking calories is essential. 9. Alternatively start walking outside daily, tracking calories with a goal of 300 calories per day, daily. You can download the rasta [employer] which can track your time, distance and calories while walking outside. You press start in the rasta when you start and then stop when you are finished. 10.? It is important to avoid for at least 18 months postoperatively and it has been discussed at the information session 11. Please get labs, EKG and chest X-Ray within 1 week. 12. Discussed and answered all questions regarding?obtained consent to participate in the [place] [facility]?Registry. 13. Please follow the diet plan exactly, without any change. If you do not like something about the plan or you feel hungry, you need to communicate with me so I can help you revise the plan. You should not change the plan yourself. Text me at [phone] 14. Goal is to lose at least 12 pounds in the first month 15. Goal is to lose 10% of your weight before surgery, which is about 20 lbs. Ultimate weight goal: 183 lbs or more before surgery Patient is morbidly obese and is not considered stable at this time.?I spent a total of 70 minutes reviewing/updating records, examining the patient and counseling the patient on weight management as detailed above. Orders: Orders Insulin Today E66.01 - Morbid (severe) obesity due to excess calories, Z68.38 - Body mass index [BMI] 38.0-38.9, adult Complete Blood Count Auto Diff Today E66.01 - Morbid (severe) obesity due to excess calories, Z68.38 - Body mass index [BMI] 38.0-38.9, adult Vitamin B12 and Folate Today E66.01 - Morbid (severe) obesity due to excess calories, Z68.38 - Body mass index [BMI] 38.0-38.9, adult Zinc Today E66.01 - Morbid (severe) obesity due to excess calories, Z68.38 - Body mass index [BMI] 38.0-38.9, adult Comprehensive Met. Panel Today E66.01 - Morbid (severe) obesity due to excess calories, Z68.38 - Body mass index [BMI] 38.0-38.9, adult Vitamin B1 Today E66.01 - Morbid (severe) obesity due to excess calories, Z68.38 - Body mass index [BMI] 38.0-38.9, adult Vitamin A Today E66.01 - Morbid (severe) obesity due to excess calories, Z68.38 - Body mass index [BMI] 38.0-38.9, adult C Reactive Protein Today E66.01 - Morbid (severe) obesity due to excess calories, Z68.38 - Body mass index [BMI] 38.0-38.9, adult Hemoglobin A1c Today E66.01 - Morbid (severe) obesity due to excess calories, Z68.38 - Body mass index [BMI] 38.0-38.9, adult Lipid Panel Today E66.01 - Morbid (severe) obesity due to excess calories, Z68.38 - Body mass index [BMI] 38.0-38.9, adult IRON PROFILE Today E66.01 - Morbid (severe) obesity due to excess calories, Z68.38 - Body mass index [BMI] 38.0-38.9, adult Ferritin Today E66.01 - Morbid (severe) obesity due to excess calories, Z68.38 - Body mass index [BMI] 38.0-38.9, adult PTHI Today E66.01 - Morbid (severe) obesity due to excess calories, Z68.38 - Body mass index [BMI] 38.0-38.9, adult TSH reflex Free T4 Today E66.01 - Morbid (severe) obesity due to excess calories, Z68.38 - Body mass index [BMI] 38.0-38.9, adult H Pylori Breath Test Today E66.01 - Morbid (severe) obesity due to excess calories, Z68.38 - Body mass index [BMI] 38.0-38.9, adult Vitamin D 25-OH Total Today E66.01 - Morbid (severe) obesity due to excess calories, Z68.38 - Body mass index [BMI] 38.0-38.9, adult Coding Level of Care Code Est Pt Level 5 (97050) Diagnoses Morbid obesity E66.01 Time Spent (min) 70
[2023-05-25 08:55] VITALS: BP 136/73; PULSE 88; TEMP 36; O2SAT 98; BMI 44.1
== END 2023-05-25 10:12 | disposition home or self-care (01) ==
PROVIDERS: PCP Student in an Organized Health Care Education/Training Program; Visit Provider Physician Assistant Surgical
DX: E66.01 Morbid (severe) obesity due to excess calories (principal); Z68.41 Body mass index [BMI] 40.0-44.9, adult
CPT/HCPCS: 99215

== ENCOUNTER 2023-05-30 14:54 | Outpatient (AMB) | payer MEDICAID, SELFPAY ==
--- NOTE | 2023-05-30 15:03 | MHC.OFFVIS ---
Intake Vital Signs 05/30/23 15:04 Height 4 ft 9 in Weight 207 lb 3.752 oz BMI 44.8 BP 130/82 Blood Pressure Location Lt brachial Position Sitting Pulse 101 H Intake Visit Reasons: 1 year followup w/ekg dx: prolonged qt interval Intake Note: 1 year follow-up with ekg c/o little chest pain sometimes Last Repairer Required: No Last Repairer Name: Vernell vivas Allergies aspirin [ASPIRIN] Allergy (Severe, Verified 05/25/23 08:53) ANAPHYLAXIS Medication List - Last Reconciled 05/30/23 by Hunter Hess MD aripiprazole 10 mg PO DAILY cholecalciferol (vitamin D3) 125 mcg PO DAILY 90 days cyanocobalamin (vitamin B-12) 500 mcg PO DAILY 90 days doxepin 150 mg PO BEDTIME levothyroxine 25 mcg PO QAM lorazepam (Ativan) 1 mg PO DAILY PRN pantoprazole 40 mg PO DAILY venlafaxine ER 150 mg PO QAM HPI HPI Comments History of Present Illness Details 46-year-old female who is here for follow-up. She had atypical chest pain. She was advised to undergo surgery with a low risk for perioperative complications. She is now presenting because her EKG was noted to have prolonged QT interval 501 milliseconds. She is saying her venlafaxine dose was decreased to 150 mg once a day and her nighttime dose 75 mg was removed. Since then her EKG has improved and the QT interval is 462 milliseconds. Her potassium in the blood is mildly low at 3.7. She has no significant symptoms currently. Occasionally feels palpitations and she is not bothered by them. No chest pain or shortness of breath. 05/30/23: She returns for follow-up. She is complaining of left-sided burning sensation which is happening with activity and at rest. She is saying that she has become more active recently and when she is exercising she gets a burning sensation on the left upper chest. She does not have any history of asthma. Blood pressure control is good. Her EKG showing QTC of 474 which is comparable to before. Previously she had prolonged QT interval of 501 milliseconds. FORMERLY [facility], [facility] Medical History Bipolar disorder Depression Anxiety Surgical History History of tubal ligation History of 2 sections Family History Mother Diabetes Hx of heart surgery Hypertension High cholesterol Father Heart attack Brother Hypertension Sister Hypertension Sister Hypertension Daughter No problems noted. Son No problems noted. Son No problems noted. Social History Alcohol intake: former Patient Tobacco Use Status: Never used Tobacco Current occupational status: employed and unemployed Current occupation: [employer] Current occupational exposures/hazards: No Review of Systems Const Denies chills, Denies fatigue, Denies fever(s), Denies frequent falls, Denies weakness, Denies weight gain and Denies weight loss ENT Denies dizziness Card Denies chest pain, Denies leg edema, Denies lightheadedness, Denies palpitations, Denies dyspnea, Denies dyspnea on exertion, Denies orthopnea and Denies other (loss of consciousness) Resp Denies cough, Denies dyspnea and Denies dyspnea on exertion GI Denies hematochezia and Denies change in stool character Musc Denies abnormal gait, Denies muscle weakness, Denies numbness, Denies radiating pain into limb and Denies tingling Neuro Denies abnormal gait, Denies dizziness, Denies frequent falls, Denies numbness, Denies tingling and Denies weakness Endo Denies fatigue and Denies palpitations Physical Exam Vital Signs: BMI result Body Mass Index 44.8 GENERAL APPEARANCE: in no acute distress, pleasant. NECK: no carotid bruit, no jugular venous distention. SKIN: no suspicious lesions, warm and dry. HEART: no murmurs, regular rate and rhythm. LUNGS: clear to auscultation bilaterally. ABDOMEN: soft, nontender. EXTREMITIES: no edema. PERIPHERAL PULSES: equal. NEUROLOGIC: No gross deficits, AAO X 3 Office Procedures EKG Details: Sinus tachycardia 101 beats per minute, normal axis, QTC 474 milliseconds. 26669-Oaktqjziciwvliack, Complete Assessment & Plan Assessment & Plan (1) Chest pain on exertion: Code(s): R07.9 - Chest pain, unspecified (2) Prolonged QT interval: Code(s): R94.31 - Abnormal electrocardiogram [ECG] [EKG] Plan Pleasant 47 year female who is here for follow-up. She was previously seen for prolonged QT interval. This was felt to be related to her medications as she has been taking venlafaxine. Her dose was decreased and QT interval improved. She continues to have stable QT intervals at this point. Please check for interactions before adding any new medication. She is complaining of exertional chest burning. We will arrange exercise tolerance test for her. Follow-up in 3-4 months. Thank you for allowing me to participate in the care of your patient. Please feel free to contact me if you have any questions. Coding Level of Care Code Est Pt Level 4 (52539) Diagnoses Chest pain on exertion R07.9 Prolonged QT interval R94.31 CPT Codes EKG - CPT: 69587-Aiwqdonzjlxaumuek, Complete ([id number])
[2023-05-30 15:04] VITALS: BP 130/82; PULSE 101; BMI 44.8
== END 2023-05-30 15:42 | disposition home or self-care (01) ==
PROVIDERS: PCP Student in an Organized Health Care Education/Training Program; Visit Provider Internal Medicine Cardiovascular Disease
DX: R07.9 Chest pain, unspecified (principal); R94.31 Abnormal electrocardiogram [ECG] [EKG]
CPT/HCPCS: 93010; 99214

== ENCOUNTER → 2023-05-30 14:54 | Outpatient (BNVA) | payer MEDICAID, SELFPAY | PROVIDERS: PCP Student in an Organized Health Care Education/Training Program; Visit Provider Internal Medicine Cardiovascular Disease | DX: R94.31 Abnormal electrocardiogram [ECG] [EKG] (principal); R07.9 Chest pain, unspecified | CPT/HCPCS: 93005; 99212 ==

== ENCOUNTER → 2023-08-31 09:39 | Outpatient (REF) | payer MEDICAID, SELFPAY ==
--- NOTE | 2023-08-31 09:44 | CA_ITS ---
Acquisition Time: 2023-08-31 10:04:18 Total Exercise Time: 00:06:10 Test Indications: Abnormal ECG Medications: LEVOTHYROXINE PANTOPRAZOLE LORAZAPAM VENLAFAXINE ARPIPRAZOLE DOXEPIN Protocol: PIETRO Max HR: 157 BPM 89% of Pred: 175 BPM Max BP: 160/070 mmHG Max Work Load: 7.2 METS Exercise stress test with exercise 6 min 10 sec of Pietro protocol, achieving 89% MPHR, with mild sob, no chest discomfort, without arrythmia, with normotensive response to exercise, without EKG changes meeting criteria for ischemia. Test reviewed with Dr Red. Referred By: Hunter Hess Overread By: MELLO GONZALEZ
== END ==
LOC: HO.CARD 09:39
PROVIDERS: Visit Provider Internal Medicine Cardiovascular Disease
DX: R07.89 Other chest pain (principal)
CPT/HCPCS: 93017

== ENCOUNTER 2024-02-22 11:46 | Outpatient (REF) | payer MEDICAID, SELFPAY ==
[2024-02-22 14:56] LABS: Alanine Aminotransferase 21 U/L (0-31); Albumin Level 4.6 g/dL (3.5-5.0); Alkaline Phosphatase 77 U/L (39-117); Anion Gap 12 (12-20); Aspartate Amino Transferase 17 U/L (5-31); Bilirubin Direct 0.1 mg/dL (0.0-0.5); Bilirubin Total 0.5 mg/dL (0.0-1.0); Blood Urea Nitrogen 14 mg/dL (9-16); Calcium 9.7 mg/dL (8.4-10.2); Carbon Dioxide 27 mmol/L (22-29); Chloride 106 mmol/L (96-108); Cholesterol 303 mg/dL (<200); Estimated Glomerular Filt Rate > 60; Glucose Random 98 mg/dL (60-115); HDL Cholesterol 54 mg/dL (>40); LDL Cholesterol Calculated 206 mg/dL (<100); Potassium 3.5 mmol/L (3.3-5.1); Sodium 141 mmol/L (135-145); Total Protein 8.1 g/dL (6.5-8.0); Triglycerides 218 mg/dL (<150)
[2024-02-22 15:13] LABS: TSH reflex Free T4 3.61 uIU/mL (0.32-4.0)
== END 2024-02-22 11:47 | disposition home or self-care (01) ==
LOC: HO.CHCLDS 11:46
PROVIDERS: Visit Provider Student in an Organized Health Care Education/Training Program
DX: F32.A Depression, unspecified (principal); E03.9 Hypothyroidism, unspecified
CPT/HCPCS: 36415; 80048; 80061; 80076; 84443

== ENCOUNTER 2024-07-17 10:23 | Outpatient (REF) | payer MEDICAID, SELFPAY ==
[2024-07-17 14:24] LABS: Alanine Aminotransferase 16 U/L (0-31); Albumin Level 4.5 g/dL (3.5-5.0); Alkaline Phosphatase 67 U/L (39-117); Anion Gap 10 (12-20); Aspartate Amino Transferase 20 U/L (5-31); Bilirubin Direct 0.2 mg/dL (0.0-0.5); Bilirubin Total 0.5 mg/dL (0.0-1.0); Blood Urea Nitrogen 14 mg/dL (9-16); Calcium 9.5 mg/dL (8.4-10.2); Carbon Dioxide 27 mmol/L (22-29); Chloride 106 mmol/L (96-108); Cholesterol 225 mg/dL (<200); Estimated Glomerular Filt Rate > 60; Glucose Random 108 mg/dL (60-115); HDL Cholesterol 53 mg/dL (>40); LDL Cholesterol Calculated 145 mg/dL (<100); Potassium 3.8 mmol/L (3.3-5.1); Sodium 139 mmol/L (135-145); Triglycerides 138 mg/dL (<150)
[2024-07-17 14:39] LABS: TSH reflex Free T4 2.83 uIU/mL (0.32-4.0)
== END 2024-07-17 10:24 | disposition home or self-care (01) ==
LOC: HO.CHCLDS 10:23
PROVIDERS: Visit Provider Student in an Organized Health Care Education/Training Program
DX: F32.A Depression, unspecified (principal); E03.9 Hypothyroidism, unspecified
CPT/HCPCS: 36415; 80048; 80061; 80076; 84443

== ENCOUNTER 2024-10-10 14:55 | Outpatient (REF) | payer MEDICAID, SELFPAY ==
--- OUTSIDE RECORDS SUMMARY | 2024-10-10 17:07 | XMS_ITS | Encounter Summary ---
Author Organization [facility] Address [address] [place] [address] Care Team Providers Care Limehouse Worker Name Role Phone Lyndsey Beauchamp MD Primary Care Provider [phone] Encounter Details Date Type Department Care Team (Latest Contact Info) Description 10/09/2024 Travel Social History Tobacco Use Types Packs/Day Years Used Date Smoking Tobacco: Never Passive Smoke Exposure: Never Smokeless Tobacco: Never Comments Unknown Sex and Gender Information Value Date Recorded Sex Assigned at Female 06/12/2022 10:32 AM EDT Legal Sex Female 10:32 AM EDT Gender Identity Choose not to disclose 10:32 AM EDT Sexual Orientation Straight 06/12/2022 10 :32 AM EDT documented as of this encounter Plan of Treatment Upcoming Encounters Date Type Department Care Team (Late st Contact Info) Description 10/22/2024 8:45 AM EDT Office Visit [facility] MED [facility] PED[facility] [address] [place] [address] Lyndsey Beauchamp MD [address] [place] [address] 11/20/2024 2:30 PM EDT Office Visit [facility] [address] [place], [place] [id number] Rosalinda Yepez OD [address] [place] [address] 11/27/2024 3:30 PM EDT Clinical Support [facility] DI[facility]ET[facility]TR[facility] [address] [place] [address] uAre Braga, ORIANA [address] [place] [address] documented as of this encounter Visit Diagnoses Not on filedocumented in this encounter Care Teams Limehouse Worker Relationship Specialty Start Date End Date Lyndsey Beauchamp MD [address] [place] [address] PCP - General Family Medicine 07/03/17 documented as of this encounter
--- OUTSIDE RECORDS SUMMARY | 2024-10-10 17:07 | XMS_ITS | Encounter Summary ---
Author Organization [employer] [facility] Address [address] [place] [address] Care Team Providers Care Toolmaker Name Role Phone Lyndsey Beauchamp MD Primary Care Provider [phone] Encounter Details Date Type Department Care Team (Latest Contact Info) Description 01/21/2019 Abstract [facility] CONVERSIONS Dental, Provider, DDS Social History Tobacco Use Types Packs/Day Years Used Date Smoking Tobacco: Never Assessed Comments Unknown Sex and Gender Information Value [...] Description 10/22/2024 8:45 AM EDT Office Visit [facility] MED & PEDS [address] [place] [address] Lyndsey Beauchamp MD [address] [place] [address] 11/20/2024 2:30 PM EDT Office Visit [facility] [address] [place], [place] [phone] Rosalinda Yepez OD [address] [place] [address] 11/27/2024 3:30 PM EDT Clinical Support [facility] DI[facility] [address] [place] [address] Aure Braga, ORIANA [address] [place] [address] documented as of this encounter Visit Diagnoses Not on filedocumented in this encounter Care Teams Toolmaker Relationship Specialty Start Date End Date Lyndsey Beauchamp MD [address] [place] [address] PCP - General Family Medicine 07/03/17 documented as of this encounter
--- OUTSIDE RECORDS SUMMARY | 2024-10-10 17:07 | XMS_ITS | Clinical Summary ---
Author Organization [employer] Address [address] [facility] [address] [place] [address] Care Team Providers Care Carpenter/Labor Name Role Phone Lyndsey Beauchamp MD Primary Care Provider Allergies Active Allergy Reactions Criticality Noted Date Comments Aspirin Hives 10/17/2017 Other reaction(s): Burning Eyes, Hives / Skin Rash Medications venlafaxine XR (Effexor XR) 75 MG 24 hr capsule TAKE ONE CAPSULE EVERY MORNING WITH 150mg CAPSULE 3 Active venlafaxine XR (Effexor XR) 150 MG 24 hr capsule TAKE ONE CAPSULE EVERY MORNING WITH FOOD FOR ANXIETY AND MOOD 3 Active pantoprazole (ProtoNix) 40 MG EC tablet Take 40 mg by mouth in the morning. 3 Active LORazepam (Ativan) 1 MG tablet TAKE ONE TABLET TWICE DAILY FOR ANXIETY 3 Active doxepin (SINEquan) 50 MG capsule Take 50 mg by mouth at bedtime. 3 Active doxepin (SINEquan) 100 MG capsule Take 100 mg by mouth at bedtime. 3 Active divalproex (Depakote) 500 MG EC tablet Take 500 mg by mouth 3 times daily. 3 Active cholecalciferol (Vitamin D-3) 125 MCG (5000 UT) capsule Take 125 mcg by mouth in the morning. 2 Active ARIPiprazole (Abilify) 10 MG tablet Take 10 mg by mouth in the morning. 3 Active ergocalciferol (Vitamin D2) 1.25 MG (52463 UT) capsuleIndicatio ns:Vitamin D deficiency Take 1 capsule (1.25 mg) by mouth 1 (one) time per week. 15 capsule 3 Active omega-3 (Fish Oil) 1000 MG capsuleIndicatio ns:Hypertriglyce ridemia TAKE ONE CAPSULE TWICE DAILY 180 capsule 1 3 Active levothyroxine (Synthroid, Levoxyl) 25 MCG tabletIndication s:Hypothyroidism , unspecified type TAKE ONE TABLET EVERY MORNING 30 TO 60 MINUTES BEFORE BREAKFAST 90 tablet 3 Active fluticasone (Flonase) 50 MCG/ACT nasal sprayIndications :Rhinitis, unspecified type Administer 2 sprays into each nostril 2 times daily. Shake gently. Before first use, prime pump. After use, clean tip and replace cap. 16 g 11 3 Active cetirizine (ZyrTEC) 10 MG tabletIndication s:Rhinitis, unspecified type Take 1 tablet (10 mg) by mouth Once per day. 90 tablet 1 4 10/16/19 25 Active Tirzepatide-Weig ht Management (Zepbound) 2.5 MG/0.5ML solution auto-injector Inject 0.5 mL (2.5 mg) under the skin 1 (one) time per week. 2 mL 11 4 07/17/20 25 Active Active Problems Problem Noted Date Diagnosed Date Depression 02/22/2024 Hypothyroidism 03/20/2018 Encounters Date Type Department Care Team Description 10/09/2024 3:00 PM EST Clinical Support [facility] DIABETES/NTRN [address] [place] [address] Class 1 obesity due to excess calories without serious comorbidity with body mass index (BMI) of 33.0 to 33.9 in adult (Primary Dx) 10/09/2024 Travel 09/04/2024 2:00 PM EST Clinical Support [facility] DIABETES/NTRN [address] [place] [address] Class 2 severe obesity due to excess calories with serious comorbidity and body mass index (BMI) of 35.0 to 35.9 in adult ([facility]) (Primary Dx) 09/04/2024 Travel 07/31/2024 3:00 PM EST Clinical Support [facility] DIABETES/NTRN [address] [place] [address] Class 2 obesity due to excess calories with body mass index (BMI) of 37.0 to 37.9 in adult, unspecified whether serious comorbidity present (Primary Dx) 07/31/2024 Travel 07/21/2024 Telephone [facility] MED & PEDS [address] [place] [address] Lyndsey Beauchamp MD Prior Authorization; approval 07/17/2024 9:30 AM EST Office Visit [facility] MED & PEDS [address] [place] [address] Lyndsey Beauchamp MD Hypothyroidism, unspecified type (Primary Dx); Depression, unspecified depression type; Encounter for screening mammogram for breast cancer; Class 2 severe obesity with serious comorbidity and body mass index (BMI) of 37.0 to 37.9 in adult, unspecified obesity type (CMS/HCC); Encounter for immunization 07/17/2024 Travel from Last 3 Months Immunizations Name Administration Dates Next Due Tdap 12/10/2017 Social History Tobacco Use Types Packs/Day Years Used Date Smoking Tobacco: Never Passive Smoke Exposure: Never Smokeless Tobacco: Never Tobacco Cessation:Counseling Given: Not Answered Comments Unknown Sex and Gender Information Value Date Recorded Sex Assigned at Female 06/12/2022 10:32 AM EDT Legal Sex Female 10:32 AM EDT Gender Identity Choose not to disclose 10:32 AM EDT Sexual Orientation Straight 06/12/2022 10 :32 AM EDT Last Filed Vital Signs Vital Sign Reading Time Taken Comments Blood Pressure 131/84 07/17/2024 9:33 AM EST Pulse 104 07/17/2024 9:33 AM EST Temperature 36.3 ??C (97.3 ??F) 07/17/2024 9:33 AM ES T Respiratory Rate 14 07/17/2024 9:33 AM EST Oxygen Saturation 99% 07/17/2024 9:33 AM EST Inhaled Oxygen Concentration - - Weight 72.1 kg (159 lb) 10/10/2024 3:44 PM EST Height 146.1 cm (4' 9.5 ) 10/10/2024 3:44 PM EST Body Mass Index 33.81 10/10/2024 3:44 PM EST Plan of Treatment Upcoming Encounters Date Type Department Care Team (Late st Contact Info) Description 10/22/2024 8:45 AM EDT Office Visit [facility] MED & PEDS [address] [place], [place] [phone] Lyndsey Beauchamp MD [address] [place], [place] [phone] 11/20/2024 2:30 PM EDT Office Visit [facility] OPTOMETRY [address] [place] [address] LuchoRosalinda ambriz, OD [address] [place], [place] [phone] 11/27/2024 3:30 PM EDT Clinical Support [facility] DIABETES/NTRN [address] [place], [place] [phone] Aure Braga, ORIANA [address] [place] [address] Health Maintenance Due Date Last Done Comments CT Colonography 1977 Colonoscopy 1977 Colorectal Cancer Screening 1977 Depression Screening 1977 FIT DNA/Cologuard 1977 FIT 1977 FOBT 1977 HIV Screening 1977 SDOH Screening 1977 Sigmoidoscopy 1977 Alcohol/Substance Use Screening 1989 Family Planning (PISQ) 1992 Hepatitis C Screening 10/13/1995 Hepatitis B Vaccines (1 of 3 - 19+ 3-dose series) 1996 Mammogram 09/13/2022 09/13/2020, 06/12/2018, 12/27/2017 Tobacco Screening 09/21/2023 09/21/2022 COVID-19 Vaccine ( season) 2024 08/23/2021, 01/31/2021, 01/07/2021 Influenza Vaccine (#1) 2024 07/14/2021, 2017 Pap Smear 07/19/2024 07/19/2021 Cervical Cancer Screening 07/19/2026 HPV/Cotest 07/19/2026 07/19/2021, 01/22/2018 Zoster Vaccines (1 of 2) 10/13/2027 DTaP/Tdap/Td Vaccines (2 - Td or Tdap) 12/11/2027 12/10/2017 Lipid Panel 07/17/2029 07/17/2024, 02/10, 05/25/2023, Additional history exists RSV Patients and Patients Aged 60 years or older (1 - 1-dose 75+ series) 2052 HIB Vaccines Aged Out No longer eligi ble based on patient's age to complete this topic HPV Vaccines Aged Out No longer eligi ble based on patient's age to complete this topic Hepatitis A Vaccines Aged Out No long er eligible based on patient's age to complete this topic IPV Vaccines Aged Out No longer eligi ble based on patient's age to complete this topic Meningococcal Vaccine Aged Out No vandana hetal eligible based on patient's age to complete this topic Pneumococcal Vaccine: Pediatrics (0 to 5 Years) and At-Risk Patients (6 to 49) Years) Aged Out No longer eligible based on patient's age to complete this topic RSV under 20 months Aged Out No longe r eligible based on patient's age to complete this topic Rotavirus Vaccines Aged Out No longer eligible based on patient's age to complete this topic Procedures Procedure Name Priority Date/Time Associated Diagnosis Comments TSH W/REFLEX TO FT4 Routine 07/17/2024 1 0:25 AM EST Hypothyroidism, unspecified type HEPATIC FUNCTION PANEL Routine 07/17/2024 10:25 AM EST Depression, unspecified depression type LIPID PANEL, STANDARD Routine 07/17/2024 10:25 AM EST Depression, unspecified depression type BASIC METABOLIC PANEL Routine 07/17/2024 10:25 AM EST Depression, unspecified depression type THINPREP IMAGING PAP AND HPV MRNA E6/E7, WITH CT/NG, TRICHOMONAS Routine 07/19/2021 1:15 PM EST MAMMOGRAM GENERIC Routine 09/13/2020 3:0 5 PM EST from Last 3 Months or Most Recently Relevant to Health Maintenance Results * TSH with Reflex to Free T4 (07/17/2024 10:25 AM EST) TSH reflex Free T4 2.83 0.32 - 4.0 uIU/mL [facility] Blood Venous blood specimen / Unknown 07/17/2024 10:25 AM EST 07/17/2024 1:55 PM EST Lyndsey Beauchamp MD LAB BLOOD ORDERABLES Final Resul t Performing Organization Address [facility] Co de Phone Number [facility] [address] [place] [phone] * Hepatic Function Panel (07/17/2024 10:25 AM EST) Bilirubin, Total 0.5 0.0 - 1.0 mg/dL [facility] Bilirubin, Direct 0.2 0.0 - 0.5 mg/dL [facility] Aspartate Amino Transferase 20 5 - 31 U/L [facility] Alanine Aminotransferase 16 0 - 31 U/L [facility] Total Protein 8.0 6.5 - 8.0 g/dL [facility] Albumin Level 4.5 3.5 - 5.0 g/dL [facility] Alkaline Phosphatase 67 39 - 117 U/L [facility] Blood Venous blood specimen / Unknown 07/17/2024 10:25 AM EST 07/17/2024 1:55 PM EST Lyndsey Beauchamp MD LAB BLOOD ORDERABLES Final Resul t Performing Organization Address [facility] Co de Phone Number [facility] [address] [place] [phone] * (ABNORMAL) Lipid Panel, Standard (07/17/2024 10:25 AM EST) Triglycerides 138 <150 mg/dL [facility] Comment:Desirable Triglyceri de: less than 150 mg/dLBorderline High Triglyceride 150-199 mg/dLHigh Triglyceride: 200-499 mg/dLVery High Triglyceride: greater than or equal to 5OO mg/dL Cholesterol 225(H) <200 mg/dL [facility] Comment:Desirable Cholestero l: less than 200 mg/dLBorderline High Cholesterol: 200-239 mg/dLHigh Cholesterol: greater than 239 mg/dL LDL Cholesterol Calculated 145(H) <100 mg/dL [facility] Comment:Desirable LDL: less than 100 mg/dLNear Optimal/Above Optimal LDL: 110- 129 mg/dLBorderline High LDL: 130-159 mg/dLHigh LDL: 160-189 mg/dLVery High LDL: greater than or equal to 190 mg/dL HDL Cholesterol 53 >40 mg/dL [facility] Comment:Desirable HDL: great er than 40 mg/dL Note: This HDL assay may give artificially low results in patients with liver disease. Blood Venous blood specimen / Unknown 07/17/2024 10:25 AM EST 07/17/2024 1:55 PM EST us Lyndsey Beauchamp MD LAB BLOOD ORDERABLES Final Resul t [facility] [address] [place] [phone] * (ABNORMAL) Basic Metabolic Panel (07/17/2024 10:25 AM EST) Sodium 139 135 - 145 mmol/L [facility] Potassium 3.8 3.3 - 5.1 mmol/L [facility] Chloride 106 96 - 108 mmol/L [facility] Carbon Dioxide 27 22 - 29 mmol/L [facility] Anion Gap 10(L) 12 - 20 [facility] Urea Nitrogen (BUN) 14 9 - 16 mg/dL [facility] Creatinine, Serum 0.80 0.5 - 1.4 mg/dL [facility] Estimated Glomerular Filt Rate >60 [facility] Comment:Chronic Kidney Disea se: Estimated GFR < 60 mL/min/1.40l1Kdigbe Kidney Disease: Estimated GFR < 15 mL/min/1.73m2 Glucose 108 60 - 115 mg/dL [facility] Calcium 9.5 8.4 - 10.2 mg/dL [facility] Blood Venous blood specimen / Unknown 07/17/2024 10:25 AM EST 07/17/2024 1:55 PM EST us Lyndsey Beauchamp MD LAB BLOOD ORDERABLES Final Resul t [facility] [address] [place] [phone] * THINPREP TIS PAP AND HPV mRNA E6/E7, CT/NG, TRICH (07/19/2021 1:15 PM EST) Chlamydia trachomatis RNA, TMA, Urogenital NOT DETECTED NOT DETECTED [facility] Clinical Information: None given Z124 Z113 [facility] COMMENT SEE COMMENT [facility] Comment: The analytical performance characteristics of this assay, when used to test SurePath(TM) specimens have been determined by [facility] [employer]. The modifications have not been cleared or approved by the FDA. This assay has been validated pursuant to the CLIA regulations and is used for clinical purposes. ?? For additional information, please refer to https://education.Piczo/faq/XMP839 (This link is being provided for information/ educational purposes only.) ?? COMMENT SEE COMMENT [facility] Comment: EXPLANATORY NOTE: ? The Pap is a screening test for cervical cancer. It is ?? not a diagnostic test and is subject to false negative ?? and false positive results. It is most reliable when a ?? satisfactory sample, regularly obtained, is submitted ?? with relevant clinical findings and history, and when ?? the Pap result is evaluated along with historic and ?? current clinical information. ?? COMMENT: This Pap test has been evaluated with computer assisted technology. [facility] Stock Turner: SEE COMMENT [facility] Comment: ED, CT(ASCP) CT screening location: ?? [facility] ?? [address] [place] [address] ?? [place], [place] [address] HPV nRNA E6/E7 Not Detected Not Detected [facility] Comment: Methodology: Process Safety Manager-Mediated Amplification This assay detects E6/E7 viral messenger RNA (mRNA) from 14 high-risk HPV types (16,18,31,33,35,39,45,51,52,56,58,59,66,68). ? The analytical performance characteristics of this assay have been determined by [facility] [employer]. The modifications have not been cleared or approved by the FDA. This assay has been validated pursuant to the CLIA regulations and is used for clinical purposes. ?? For additional information, please refer to http://TradeCard.Piczo/faq/CJN991j0 (This link if provided for information/ educational purposes only.) Interpretation/Re sult: Negative for intraepithelial lesion or malignancy. [facility] LMP: STEPHANIE AT 43YRS OLD FO [facility] Neisseria gonorrhoeae RNA, TMA, Urogenital NOT DETECTED NOT DETECTED [facility] Prev. BX: NONE GIVEN [facility] Prev. PAP: NIL/NEG 2018 [facility] SOURCE: Cervix [facility] Statement Of Adequacy: SEE COMMENT [facility] Comment: Satisfactory for evaluation. Endocervical/transformation zone component absent. Trichomonas vaginalis, QL, TMA, PAP Vial NOT DETECTED NOT DETECTED [facility] Comment: The analytical performance characteristics of this assay have been determined by [facility]. The modifications have not been cleared or approved by the FDA. This assay has been validated pursuant to the CLIA regulations and is used for clinical purposes. ?? For additional information, please refer to http://education.Piczo/ faq/Trichomonastma (This link is being provided for information/ educational purposes only.) ?? 07/19/2021 1:15 PM EST Terese Worthy CNM LAB PATHOLOGY ORDERABLES Final Result [facility] [address] [place] [address], * Mammography Report 1 (09/13/2020 3:05 PM EST) Anatomical Region Laterality Modality Breast Bilateral Mammography 09/13/2020 3:05 PM EST Narrative 09/14/2020 12:27 PM EST Refer to the Notes tab for result details [facility] Procedure: Mammography Report 1 Procedure Note Provider, MD Rand - 11/04/2022 Refer to the Notes tab for result details [facility] Procedure: Mammography Report 1 Lyndsey Beauchamp MD IMG BI PROCEDURES Final Result from Last 3 Months or Most Recently Relevant to Health Maintenance Insurance Care Teams Carpenter/Labor Relationship Specialty Start Date End Date Lyndsey Beauchamp MD [address] [place] [phone] PCP - General Family Medicine 07/03/17
--- OUTSIDE RECORDS SUMMARY | 2024-10-10 17:07 | XMS_ITS | Encounter Summary ---
Author Organization [employer] Address [address] [facility] [address] [place] [address] Care Team Providers Care It Program Engagement Director Name Role Phone Lyndsey Beauchamp MD Primary Care Provider [phone] Encounter Details Date Type Department Care Team (Latest Contact Info) Description 10/09/2024 3:00 PM EST Clinical Support [facility] DIABETES/NTRN [address] [place] [address] [place], [place] [phone] Class 1 obesity due to excess calories without serious comorbidity with body mass index (BMI) of 33.0 to 33.9 in adult (Primary Dx) Social History Tobacco Use Types Packs/Day Years [...] AM EDT documented as of this encounter Last Filed Vital Signs Vital Sign Reading Time Taken Comments Blood Pressure - - Pulse - - Temperature - - Respiratory Rate - - Oxygen Saturation - - Inhaled Oxygen Concentration - - Weight 72.1 kg (159 lb) 10/10/2024 3:44 PM EST Height 146.1 cm (4' 9.5 ) 10/10/2024 3:44 PM EST Body Mass Index 33.81 10/10/2024 3:44 PM EST documented in this encounter Progress Notes * Aure Braga RD - 10/09/2024 3:00 PM EST In Person Visit Medical Diagnosis: E66.9 Obesity Anthropometrics: Ht:4' 9.5 (1.461 m), Wt:159 lb (72.1 kg), BMI: Body mass index is 33.81 kg/m??. Assessment: Patient (Pt) accepted nutrition education assessment appointment with RD. Patient (Pt) accepted nutrition assessment tele-health call from RD. [employer] slunk skin curer, translated. RD took 24 hour recall/ typical daily intake from Pt. Intake revealed Food Allergies: NKFA Exercise: not at all Food Intolerance: None mentioned Food Preferences: Strawberries, blueberries, almond milk, coffee, raisins, dried cranberries, pecans, cashews, and other nuts, pizza, cheeses, hamburgers from [employer], chocolates, candy bars, potato chips, Doritos, Chips Ahoy! Cookies, rice, beans, chicken, beef, pork, eggs, lettuce, tomatoes, water, tacos, avocados Food Dislikes: Didn't say Frequency of Eating Out/ Restaurant: infrequently Who Cooks?: Patient How much caffeine?: coffee 1 cup /day How much sugary beverages?: None; water is beverage of choice Diet History: Breakfast: Eg Apple cider vinegar: 1 teaspoon Water: 1 cup Snack: Cheese stick: 1 Water: 1+ cups Lunch: Chicken breast: 4+ oz. Salad: 1.5 -2 cups Dressing: amount not given EVOO: 1 tablespoon Snack: None Water: 1+ cup Dinner: Pork: 3-4 oz. Fresh cabbage, lettuce- dark leafy green, tomato: 2 cups EVOO: 1+ tablespoons Water: 1+ cups Snack: Cheese stick: 1 Berries: 1/3 cup Water: 1+ cups Nutrition Diagnosis: Old, NI-5.8.3 Inappropriate intake of types of carbohydrates: rice, Doritos, potato chips, candy bars toname a few related to food and knowledge deficit as evidence by 24 hour recall/ typical daily intake, BMI >43. NI-5.8.4Inconsistent carbohydrate intake related to food and knowledge deficit as evidence by BMI >43 and 24 hour recall/ typical daily intake. Current/ this month, NC-3.3 Obesity related to excessive energy intake with limited physical activity as evidence by BMI>39 (adjusted, 05/22/2024). Nutrition Intervention: RD suggested for Pt to continue to follow her Tailored made meal plan and make sure her focus is protein first. In addition, RD suggested TMG- trimetholglycine and creatine monohydrate to help keep the body's muscle mass and to continue to decrease. Pt agreed to do so. Monitoring and Evaluation: Indicator Criteria Adherence frequency of eating, portion controls, carbohydrate exchanges, protein intake Weight Loss BMI, exercise routine and frequency Provider: Aure Braga RD, LDN documented in this encounter Plan of Treatment Upcoming Encounters Date Type Department Care Team (Late st Contact Info) Description 10/22/2024 8:45 AM EDT Office Visit [facility] MED & PEDS [address] [place] [address] Lyndsey Beauchamp MD [address] [place] [address] 11/20/2024 2:30 PM EDT Office Visit [facility] OPTOMETRY [address] [place] [address] Lucho, Rosalinda, OD [address] [place] [address] 11/27/2024 3:30 PM EDT Clinical Support [facility] DIABETES/NTRN [address] [place] [address] [place] [address] documented as of this encounter Visit Diagnoses Diagnosis Class 1 obesity due to excess calories without serious comorbidity with body mass index (BMI) of 33.0 to 33.9 in adult- Primary documented in this encounter Care Teams It Program Engagement Director Relationship Specialty Start Date End Date Lyndsey Beauchamp MD [address] [place] [address] PCP - General Family Medicine 07/03/17 documented as of this encounter
== END 2024-10-10 14:56 | disposition home or self-care (01) ==
LOC: HO.MAMMO 14:55
PROVIDERS: PCP Student in an Organized Health Care Education/Training Program; Visit Provider Student in an Organized Health Care Education/Training Program
DX: Z12.31 Encounter for screening mammogram for malignant neoplasm of breast (principal)
CPT/HCPCS: 77063; 77067

== ENCOUNTER → 2024-10-10 15:15 | Outpatient (BNV) | payer MEDICAID, SELFPAY | PROVIDERS: PCP Student in an Organized Health Care Education/Training Program; Visit Provider Internal Medicine | DX: Z12.31 Encounter for screening mammogram for malignant neoplasm of breast (principal) | CPT/HCPCS: 77063; 77067 ==

== ENCOUNTER 2024-10-24 08:56 | Outpatient (REF) | payer MEDICAID, SELFPAY ==
--- OUTSIDE RECORDS SUMMARY | 2024-10-24 09:19 | XMS_ITS | Encounter Summary ---
Author Organization [employer] Address [address] [facility] 7t [place] [address] Care Team Providers Care Candy Dipper Hand Name Role Phone Lyndsey Beauchamp MD Primary Care Provider [phone] Reason for Visit * Reason Comments Weight Check Zepbound Encounter Details Date Type Department Care Team (Latest Contact Info) Description 10/23/2024 9:00 AM EDT Telemedicine [facility] & [facility] [address] [place], [place] [phone] Lyndsey Beauchamp MD [address] [place] [address] Hypercholesteremia (Primary Dx); Hypothyroidism, unspecified type; Obesity (BMI 30-39.9) Social History Tobacco Use Types Packs/Day Years Used Date Smoking Tobacco: Never Passive Smoke Exposure: Never Smokeless Tobacco: Never Depression Answer Date Recorded Patient Health Questionnaire-9 Score 0 10/23/2024 Patient Health Questionnaire-9 Score 0 10/23/2024 Last PHQ-9: Questionnaire Data Not on file 0 10/23/2024 Housing Stability Answer Date Recorded What is your housing situation today? I have jamar meyers 10/23/[address] you li ve. Do you have problems with any of the following? None of the above 10/23/2024 Food Insecurity Answer Date Recorded Within the past 12 months, y ou worried that your food would run out before you got money to buy more: Never True 10/23/2024 Within the past 12 months,th e food you bought just didn't last and you didn't have enough money to get more: Never True Transportation Answer Date Recorded In the past 12 months, has l ack of transportation kept you from medical appts, meetings, work or from getting things needed for daily living? No 10/23/2024 Utilities Answer Date Recorded In the past 12 months, has t he electric, gas, oil or water company threatened to shut off services in your home? No 10/23/2024 Depression Answer Date Recorded Patient Health Questionnaire-2 Score 0 10/23/2024 Internet Access Answer Date Recorded Internet Access Q1 No 10/23/2024 Internet Access Q2 I do not want or need it 10/11 Comments Unknown Sex and Gender Information Value Date Recorded Sex Assigned at Female 06/12/2022 10:32 AM EDT Legal Sex Female 10:32 AM EDT Gender Identity Choose not to disclose 10:32 AM EDT Sexual Orientation Straight 06/12/2022 10 :32 AM EDT documented as of this encounter Progress Notes * Lyndsey Beauchamp MD - 10/23/2024 9:00 AM EDT Subjective Patient ID: Nicol Lee is a 49 y.o. adult who presents for Weight Check (Zepbound ). She is doing well She started at 203lbs and now is 153lbs. She denies any side effects with the medication Review of Systems Constitutional: Negative. Respiratory: Negative. Negative for shortness of breath. Cardiovascular: Negative for chest pain and palpitations. Gastrointestinal: Negative. Genitourinary: Negative. Musculoskeletal: Negative for neck pain. Neurological: Negative for headaches. Objective Physical Exam Psychiatric: Mood and Affect: Mood normal. Behavior: Behavior normal. Thought Content: Thought content normal. Judgment: Judgment normal. Assessment/Plan Diagnoses and all orders for this visit: Hypercholesteremia Comments: Labs ordered today Advised to cont low fat diet Orders: - Basic Metabolic Panel; Future - Lipid Panel, Standard; Future - Hepatic Function Panel; Future Hypothyroidism, unspecified type Comments: Cont Levothyroxine Labs ordered today Orders: - TSH with Reflex to Free T4; Future Obesity (BMI 30-39.9) Other orders Patient currently on pharmacotherapy to assist with management of Nicol's weight. Starting weight: Current weight: Review continue lifestyle modifications. Patient was titrated up to treatment dose. Tolerated titration well. Patient was transitioned to Zepbound given change in preferred agent by patient???s insurance and medication efficacy. Reviewed mechanism of action with patient. Discussed side effects with patient: nausea, vomiting, diarrhea & risk of pancreatitis. No contraindications identified: , hx of pancreatitis, hx of medullary thyroid cancer or MEN 2. Discussed calorie deficit, recommended reduction of 20-30% of maintenance calories; earth science technician referral offered. Recommended to decrease soda and sugary beverage consumption. Recommended at least 20 g per meal of protein to assist with satiety. Recommended at least 150 min/week of moderate intensity exercise. - Tirzepatide-Weight Management (Zepbound) 5 MG/0.5ML solution; Inject 5 mg under the skin 1 (one) time per week. documented in this encounter Plan of Treatment Upcoming Encounters Date Type Department Care Team (Late st Contact Info) Description 11/20/2024 2:30 PM EDT Office Visit [facility] OPTOMETRY [address] [place] [address] LuchoRosalinda ambriz, OD [address] [place] [address] 11/27/2024 3:30 PM EDT Clinical Support [facility] DIABETES/NTRN [address] [place] [address] Aure Braga, RD [address] [place] [address] 12/25/2024 8:30 AM EDT Office Visit [facility] [address] [place] [address] Lyndsey Beauchamp MD [address] [place] [address] Scheduled Orders Name Type Priority Associated Diagnoses Orde r Schedule Basic Metabolic Panel Lab Routine Hypercholesteremia Expected: 10/23/2024 (Approximate), Expires: 10/23/2025 Lipid Panel, Standard Lab Routine Hypercholesteremia Expected: 10/23/2024 (Approximate), Expires: 10/23/2025 Hepatic Function Panel Lab Routine Hypercholesteremia Expected: 10/23/2024 (Approximate), Expires: 10/23/2025 TSH with Reflex to Free T4 Lab Routine Hypothyroidism, unspecified type Expected: 10/23/2024 (Approximate), Expires: 10/23/2025 documented as of this encounter Visit Diagnoses Diagnosis Hypercholesteremia- Primary Pure hypercholesterolemia Hypothyroidism, unspecified type Obesity (BMI 30-39.9) documented in this encounter Additional Health Concerns Assessment Noted Time PHQ-9 Depression Total Score: 0 10/24/19 25 8:56 AM EDT documented as of this encounter Care Teams Candy Dipper Hand Relationship Specialty Start Date End Date Lyndsey Beauchamp MD [address] [place] [address] PCP - General Family Medicine 07/03/17 documented as of this encounter
--- OUTSIDE RECORDS SUMMARY | 2024-10-24 09:19 | XMS_ITS | Encounter Summary ---
Author Organization [employer] Address 75 [facility] 7t [place] [address] Care Team Providers Care Onyx Chip Terrazzo Worker Name Role Phone Lyndsey Beauchamp MD Primary Care Provider [phone] Encounter Details Date Type Department Care Team [...] Description 11/20/2024 2:30 PM EDT Office Visit [facility] OPTOMETRY [address] [place] [address] Rosalinda Yepez, OD [address] [place] [address] 11/27/2024 3:30 PM EDT Clinical Support [facility] DIABETES/NTRN [address] [place], [place] [phone] Aure Braga [address] [place] [address] 12/25/2024 8:30 AM EDT Office Visit [facility] MED [facility]EDS [address] [place], [place] [phone] Lyndsey Beauchamp MD [address] [place] [address] documented as of this encounter Visit Diagnoses Not on filedocumented in this encounter Care Teams Onyx Chip Terrazzo Worker Relationship Specialty Start Date End Date Lyndsey Beauchamp MD [address] [place] [address] PCP - General Family Medicine 07/03/17 documented as of this encounter
--- OUTSIDE RECORDS SUMMARY | 2024-10-24 09:19 | XMS_ITS | Clinical Summary ---
Author Organization [employer] Address [address] [facility] 7t [place] [address] Care Team Providers Care Ribbon Hanking Machine Operator Name Role Phone Lyndsey Beauchamp MD Primary Care Provider [phone] Allergies Active Allergy Reactions Criticality Noted Date [...] 3 Active ergocalciferol (Vitamin D2) 1.25 MG (72683 UT) capsuleIndicatio ns:Vitamin D deficiency Take 1 [...] Once per day. 90 tablet 1 4 Active Tirzepatide-Weig ht Management (Zepbound) 2.5 MG/0.5ML solution auto-injector Inject 0.5 mL (2.5 mg) under the skin 1 (one) time per week. 2 mL 11 4 07/17/20 25 Active Tirzepatide-Weig ht Management (Zepbound) 5 MG/0.5ML solution Inject 5 mg under the skin 1 (one) time per week. 2 mL 3 5 Active Active Problems Problem Noted Date Diagnosed Date Depression 02/22/2024 Hypothyroidism 03/20/2018 Encounters Date Type Department Care Team Description 10/23/2024 9:00 AM EDT Telemedicine [facility] [address] [place] [address] Lyndsey Beauchamp MD Hypercholesteremia (Primary Dx); Hypothyroidism, unspecified type; Obesity (BMI 30-39.9) 10/23/2024 Travel 10/09/2024 3:00 PM EST Clinical Support [facility] DIABETES/NTRN [address] [place] [address] Class 1 obesity due to excess calories without serious comorbidity with body mass index (BMI) of 33.0 to 33.9 in adult (Primary Dx) 10/09/2024 Travel 09/04/2024 2:00 PM EST Clinical Support [facility] DIAB[facility]ES/NTRN [address] [place] [address] Aure Braga, RD Class 2 severe obesity due to excess calories with serious comorbidity and body mass index (BMI) of 35.0 to 35.9 in adult (CMS/HCC) (Primary Dx) 09/04/2024 Travel 07/31/2024 3:00 PM EST Clinical Support [facility] DIABETES/NTRN [address] [facility] [address] Aure Brgaa, RD Class 2 obesity due to excess calories with body mass index (BMI) of 37.0 to 37.9 in adult, unspecified whether serious comorbidity present (Primary Dx) 07/31/2024 Travel from Last 3 Months Immunizations Name Administration Dates Next Due Tdap 12/10/2017 Social History Tobacco Use Types Packs/Day Years Used Date Smoking Tobacco: Never Passive Smoke Exposure: Never Smokeless Tobacco: Never Tobacco Cessation:Counseling Given: Not Answered Depression Answer Date Recorded Patient Health Questionnaire-9 [...] Description 11/20/2024 2:30 PM EDT Office Visit [facility] OPTOMETRY [address] [place] [address] Rosalinda Yepez, OD [address] [place] [address] 11/27/2024 3:30 PM EDT Clinical Support [facility] DIABETES/NTRN [address] [place] [address] Aure Braga, RD [address] [place] [address] 12/25/2024 8:30 AM EDT Office Visit [facility] [address] [place], [place] [phone] Lyndsey Beauchamp MD [address] [place], [place] [phone] Health Maintenance Due Date Last Done Comments CT Colonography 1977 Colonoscopy 1977 Colorectal Cancer Screening 1977 FIT DNA/Cologuard 1977 FIT 1977 FOBT 1977 HIV Screening 1977 Sigmoidoscopy 1977 Family Planning (PISQ) 1992 Hepatitis C Screening 10/13/1995 Hepatitis B Vaccines (1 of 3 - 19+ 3-dose series) 1996 Tobacco Screening 09/21/2023 09/21/2022 COVID-19 Vaccine ( season) 2024 08/23/2021, 01/31/2021, 01/07/2021 Influenza Vaccine (#1) 2024 07/14/2021, 2017 Pap Smear 07/19/2024 07/19/2021 Alcohol/Substance Use Screening 10/23/2025 10/23/2024 Depression Screening 10/23/2025 10/23/2024, 10/24/19 25 SDOH Screening 10/23/2025 10/23/2024 Cervical Cancer Screening 07/19/2026 HPV/Cotest 07/19/2026 07/19/2021, 01/22/2018 Mammogram 10/10/2026 10/10/2024, 02/08/2020, 01/15/2019, Additional history exists Zoster Vaccines (1 of 2) 10/13/2027 DTaP/Tdap/Td [...] Procedure Name Priority Date/Time Associated Diagnosis Comments BI MAMMOGRAM SCREENING TOMOSYNTHESIS BILATERAL Routine 10/10/2024 3:02 PM EST Encounter for screening mammogram for breast cancer LIPID PANEL, STANDARD Routine 07/17/2024 10:25 AM EST Depression, unspecified depression type THINPREP IMAGING PAP AND HPV MRNA E6/E7, WITH CT/NG, TRICHOMONAS Routine 07/19/2021 1:15 PM EST from Last 3 Months or Most Recently Relevant to Health Maintenance Results * BI Mammogram Screening Tomosynthesis Bilateral (10/10/2024 3:02 PM EST) Anatomical Region Laterality Modality Breast Bilateral Mammography 10/10/2024 3:02 PM EST Narrative 10/14/2024 1:52 PM EST ? [facility] ? [address] ?[place] [address] ? Mammography Report ? Signed ? Patient: Gillis Lee,Susky ?MR#: [id number] ?? [id number] ? : 1975 ?Acct:[id number] ? Age/Sex: 48 / F ?ADM Date: 02/28/25 ? Loc: HO.MAMMO ? Attending Dr: Lyndsey Beauchamp MD ? Ordering Physician: Lyndsey Beauchamp MD ?Results: 1Negati ?? ve ? Date of Service: 10/10/24 ?Follow Up: 1 Year From Orig ?? inal Mammogram ? Procedure(s): MM tomosynthesis screening BI ?? Accession Number(s): [id number] ? cc: Lyndsey Beauchamp MD ? EXAMINATION: ?? MM SCREENING DIGITAL BREAST TOMOSYNTHESIS, BILATERAL ? CLINICAL INFORMATION: ? Screening. Asymptomatic. ? COMPARISON: ?? Mammography: Comparison is made with available priors ? TECHNIQUE: ?? Digital breast mammography with tomosynthesis is performed in both the ?? craniocaudal and mediolateral oblique views along with computer-aided ?? detection (CAD). ? FINDINGS: ?? The breasts are heterogeneously dense, which may obscure small masses ?? (ACR BI-RADS breast composition Category c). ? There are no significant masses, abnormal calcifications, or other ?? abnormalities. ? MM/MM tomosynthesis screening BI ?? IMPRESSION: ?? No mammographic evidence of malignancy. ? ASSESSMENT: ? BI-RADS BI-RADS 1 - Negative ? RECOMMENDATION: ?? Routine annual mammography screening. ? 1 year F/U ? This examination should not preclude the clinical evaluation of a ?? suspicious palpable abnormality. ? This patient's information was entered into a reminder system with a ?? target due date for their next mammogram. ? Electronically signed by: ??Micheline Holt DO ??10/14/2024 01:49 PM EST ?? RP ? Dictated By: ?Micheline Holt DO ? Signed By: ?<Electronically signed by Micheline Holt, DO in OV> ? 10/14/24 1349 ? DD/DT: 10/10/ 1502 ? TD/TT: 10/10/ 1515 ? Lining Stuffer: ? Procedure Note Donotuseinterpreter, Image - 10/14/2024 [facility] [address] [place] [address] Mammography Report Signed Patient: Nicol RosenbaumMR#: [id number] : 1975Acct:[id number] Age/Sex: 48 / FADM Date: 10/10/24 Loc: HO.MAMMO Attending Dr: Lyndsey Beauchamp MD Ordering Physician: Lyndsey Beauchamp MDResults: 1Negati ve Date of Service: 10/10/24Follow Up: 1 Year From Orig inal Mammogram Procedure(s): MM tomosynthesis screening BI Accession Number(s): [id number] cc: Lyndsey Beauchamp MD EXAMINATION: MM SCREENING DIGITAL BREAST TOMOSYNTHESIS, BILATERAL CLINICAL INFORMATION: Screening. Asymptomatic. COMPARISON: Mammography: Comparison is made with available priors TECHNIQUE: Digital breast mammography with tomosynthesis is performed in both the craniocaudal and mediolateral oblique views along with computer-aided detection (CAD). FINDINGS: The breasts are heterogeneously dense, which may obscure small masses (ACR BI-RADS breast composition Category c). There are no significant masses, abnormal calcifications, or other abnormalities. MM/MM tomosynthesis screening BI IMPRESSION: No mammographic evidence of malignancy. ASSESSMENT: BI-RADS BI-RADS 1 - Negative RECOMMENDATION: Routine annual mammography screening. 1 year F/U This examination should not preclude the clinical evaluation of a suspicious palpable abnormality. This patient's information was entered into a reminder system with a target due date for their next mammogram. Electronically signed by: Micheline Holt DO 10/14/2024 01:49 PM EST Dictated By: Micheline Holt DO Signed By: <Electronically signed by Micheline Holt DO in OV> 10/14/24 1349 DD/ 1502 TD/TT: 10/10/24 1515 Lining Stuffer: Lyndsey Beauchamp MD IMG BI PROCEDURES Final Result * (ABNORMAL) Lipid Panel, Standard (07/17/2024 10:25 AM EST) Triglycerides 138 <150 mg/dL [facility] Comment:Desirable Triglyceri de: less than 150 mg/dLBorderline High Triglyceride 150-199 mg/dLHigh Triglyceride: 200-499 mg/dLVery High Triglyceride: greater than or equal to 5OO mg/dL Cholesterol 225(H) <200 mg/dL [facility] Comment:Desirable Cholestero l: less than 200 mg/dLBorderline High Cholesterol: 200-239 mg/dLHigh Cholesterol: greater than 239 mg/dL LDL Cholesterol Calculated 145(H) <100 mg/dL [facility] Comment:Desirable LDL: less than 100 mg/dLNear Optimal/Above Optimal LDL: 110- 129 mg/dLBorderline High LDL: 130-159 mg/dLHigh LDL: 160-189 mg/dLVery High LDL: greater than or equal to 190 mg/dL HDL Cholesterol 53 >40 mg/dL [facility] Comment:Desirable HDL: grea ter than 40 mg/dL Note: This HDL assay may give artificially low results in patients with liver disease. Blood Venous blood specimen / Unknown 07/17/2024 10:25 AM EST 07/17/2024 1:55 PM EST us Lyndsey Beauchamp MD LAB BLOOD ORDERABLES Final Resul t [facility] [address] [place] [phone] * THINPREP TIS PAP AND HPV mRNA E6/E7, CT/NG, TRICH (07/19/2021 1:15 PM EST) Chlamydia trachomatis RNA, TMA, Urogenital NOT DETECTED NOT DETECTED [facility] Clinical Information: None given Z124 Z113 [facility] COMMENT SEE COMMENT [facility] Comment: The analytical performance characteristics of this assay, when used to test SurePath(TM) specimens have been determined by [employer]. The modifications have not been cleared or approved by the FDA. This assay has been validated pursuant to the CLIA regulations and is used for clinical purposes. ?? For additional information, please refer to https://MessageParty.ProspectNow/faq/WFC258 (This link is being provided for information/ [...] has been evaluated with computer assisted technology. [facility] Mortgage Loan Officer Originator: SEE COMMENT [facility] Comment: ED, CT(ASCP) CT screening location: ?? [facility] ?? [address] [place] [address] ?? [place] [address] HPV nRNA E6/E7 Not Detected Not Detected [facility] Comment: Methodology: Hr Business Partner-Mediated Amplification This assay detects E6/E7 viral messenger RNA (mRNA) from 14 high-risk HPV types (16,18,31,33,35,39,45,51,52,56,58,59,66,68). ? The analytical performance characteristics of this assay have been determined by [employer]. The modifications have not been cleared or approved by the FDA. This assay has been validated pursuant to the CLIA regulations and is used for clinical purposes. ?? For additional information, please refer to http://71lbs/faq/CQU568o9 (This link if provided for information/ educational purposes only.) Interpretation/Re sult: Negative for intraepithelial lesion or malignancy. [facility] LMP: STEPHANIE AT 43YRS OLD FO UNDATION [facility] Neisseria gonorrhoeae RNA, TMA, Urogenital NOT DETECTED NOT DETECTED [facility] Prev. BX: NONE GIVEN [facility] Prev. PAP: NIL/NEG 2018 [facility] SOURCE: Cervix [facility] Statement Of Adequacy: SEE COMMENT [facility] Comment: Satisfactory for evaluation. Endocervical/transformation zone component absent. Trichomonas vaginalis, QL, TMA, PAP Vial NOT DETECTED NOT DETECTED [facility] Comment: The analytical performance characteristics of this assay have been determined by [employer]. The modifications have not been cleared or approved by the FDA. This assay has been validated pursuant to the CLIA regulations and is used for clinical purposes. ?? For additional information, please refer to http://education.ProspectNow/ faq/Trichomonastma (This link is being provided for information/ educational purposes only.) ?? 07/19/2021 1:15 PM EST us Terese CASTILLO LAB PATHOLOGY ORDERABLES Final Result [facility] [address] from Last 3 Months or Most Recently Relevant to Health Maintenance Insurance [facility] PPO Care Teams Ribbon Hanking Machine Operator Relationship Specialty Start Date End Date Lyndsey Beauchamp MD [address] [place] [address] PCP - General Family Medicine 07/03/17
--- OUTSIDE RECORDS SUMMARY | 2024-10-24 09:19 | XMS_ITS | Encounter Summary ---
Author Organization [employer] Address 75 [facility] 7t [place] [address] Care Team Providers Care Electric Shovel Operator Name Role Phone Lyndsey Beauchamp MD Primary Care Provider [phone] Encounter Details Date Type Department Care Team (Latest Contact Info) Description 01/21/2019 Abstract [facility] CON[facility] Dental, Provider, DDS Social History Tobacco [...] Description 11/20/2024 2:30 PM EDT Office Visit [facility] OPTOMETRY [address] [place] [address] Rosalinda Yepez, OD [address] [place] [address] 11/27/2024 3:30 PM EDT Clinical Support [facility] DIABETES/NTRN [address] [place], [place] [phone] Auer Braga [address] [place], [place] [phone] 12/25/2024 8:30 AM EDT Office Visit [facility] MED & PEDS [address] [place], [place] [phone] Lyndsey Beauchamp MD [address] [place] [address] documented as of this encounter Visit Diagnoses Not on filedocumented in this encounter Care Teams Electric Shovel Operator Relationship Specialty Start Date End Date Lyndsey Beauchamp MD [address] [place] [address] PCP - General Family Medicine 07/03/17 documented as of this encounter
--- OUTSIDE RECORDS SUMMARY | 2024-10-24 09:19 | XMS_ITS | Encounter Summary ---
Author Organization [employer] Address [address] [facility] 7t [place] [address] Care Team Providers Care Facilities Engineer Name Role Phone Lyndsey Beauchamp MD Primary Care Provider [phone] Encounter Details Date Type Department Care Team (Latest Contact Info) Description 10/09/2024 3:00 PM EST Clinical Support [facility] DIABETES/NTRN [address] [place] [address] [place], [place] [phone] Class 1 obesity due to excess calories [...] accepted nutrition assessment tele-health call from RD. [employer] fresh foods cake decorator, translated. RD took 24 hour recall/ typical [...] Description 11/20/2024 2:30 PM EDT Office Visit [facility] OPTOMETRY [address] [place] [address] Rosalinda Yepez, OD [address] [place] [address] 11/27/2024 3:30 PM EDT Clinical Support [facility] DIABETES/NTRN [address] [place] [address] [place] [address] 12/25/2024 8:30 AM EDT Office Visit [facility] MED & PEDS [address] [place] [address] Lyndsey Beauchamp MD [address] [place] [address] documented as of this encounter Visit Diagnoses Diagnosis Class 1 obesity due to excess calories without serious comorbidity with body mass index (BMI) of 33.0 to 33.9 in adult- Primary documented in this encounter Care Teams Facilities Engineer Relationship Specialty Start Date End Date Lyndsey Beauchamp MD [address] [place] [address] PCP - General Family Medicine 07/03/17 documented as of this encounter
--- OUTSIDE RECORDS SUMMARY | 2024-10-24 09:19 | XMS_ITS | Encounter Summary ---
Author Organization [employer] Address [address] [place] [address] Care Team Providers Care Trouble Shooting Mechanic Name Role Phone Lyndsey Beauchamp MD Primary Care Provider [phone] Encounter Details Date Type Department Care Team (Latest Contact Info) Description 10/23/2024 Travel Social History Tobacco Use Types Packs/Day Years Used Date Smoking Tobacco: Never Passive Smoke Exposure: Never Smokeless Tobacco: Never Depression Answer Date Recorded Patient Health Questionnaire-9 Score 0 10/23/2024 Patient Health Questionnaire-9 Score 0 10/23/2024 Last PHQ-9: Questionnaire Data Not on file 0 10/23/2024 Housing Stability Answer Date Recorded What is your housing situation today? I have jamar mira 10/23/[address] you li [...] Description 11/20/2024 2:30 PM EDT Office Visit [facility] [address] [place] [address] Lucho, Rosalinda, OD [address] [place] [address] 11/27/2024 3:30 PM EDT Clinical Support [facility] DIABETES/NTRN [address] [place] [address] [place] [address] 12/25/2024 8:30 AM EDT Office Visit [facility] MED & PED[facility] [address] [place] [address] Lyndsey Beauchamp MD [address] [place] [address] documented as of this encounter Visit Diagnoses Not on filedocumented in this encounter Additional Health Concerns Assessment Noted Time PHQ-9 Depression Total Score: 0 10/24/19 25 8:56 AM EDT documented as of this encounter Care Teams Trouble Shooting Mechanic Relationship Specialty Start Date End Date Lyndsey Beauchamp MD [address] [place] [address] PCP - General Family Medicine 07/03/17 documented as of this encounter
[2024-10-24 17:24] LABS: Alanine Aminotransferase 16 U/L (0-31); Albumin Level 4.4 g/dL (3.5-5.0); Alkaline Phosphatase 57 U/L (39-117); Anion Gap 13 (12-20); Aspartate Amino Transferase 20 U/L (5-31); Bilirubin Direct 0.2 mg/dL (0.0-0.5); Bilirubin Total 0.6 mg/dL (0.0-1.0); Blood Urea Nitrogen 14 mg/dL (9-16); Calcium 9.6 mg/dL (8.4-10.2); Carbon Dioxide 26 mmol/L (22-29); Chloride 107 mmol/L (96-108); Cholesterol 229 mg/dL (<200); Estimated Glomerular Filt Rate > 60; Glucose Random 72 mg/dL (60-115); HDL Cholesterol 55 mg/dL (>40); LDL Cholesterol Calculated 153 mg/dL (<100); Potassium 4.1 mmol/L (3.3-5.1); Sodium 142 mmol/L (135-145); Total Protein 7.9 g/dL (6.5-8.0); Triglycerides 108 mg/dL (<150)
== END 2024-10-24 08:57 | disposition home or self-care (01) ==
LOC: HO.CHCLDS 08:56
PROVIDERS: Visit Provider Student in an Organized Health Care Education/Training Program
DX: E78.00 Pure hypercholesterolemia, unspecified (principal); E03.9 Hypothyroidism, unspecified
CPT/HCPCS: 36415; 80048; 80061; 80076; 84443

== ENCOUNTER 2024-12-25 09:04 | Outpatient (REF) | payer MEDICAID, SELFPAY ==
--- OUTSIDE RECORDS SUMMARY | 2024-12-25 09:37 | XMS_ITS | Encounter Summary ---
Author Organization [employer] Address [address] [place] [address] [address], [place] [address] Care Team Providers Care Radiology Receptionist Name Role Phone Lyndsey Beauchamp MD Primary Care Provider [phone] Reason for Referral * Medications - Closed Specialty Diagnoses / Procedures Referred By Racihd rios Referred To Contact Diagnoses Class 1 obesity without serious comorbidity with body mass index (BMI) of 31.0 to 31.9 in adult, unspecified obesity type Lyndsey Beauchamp MD [address] [place] [address] Phone: tel: fax: Referral ID Status Reason Start Date Expiration Date Visits Re quested Visits Authorized [id number] Closed 1 1 Reason for Visit * Reason Comments Weight Check Encounter Details Date Type Department Care Team ([facility] Contact Info) Description 12/25/2024 8:30 AM EDT Office Visit [facility] MED & PEDS [address] [place] [address] Lyndsey Beauchamp MD [address] [place] [address] Hypothyroidism, unspecified type (Primary Dx); Class 1 obesity without serious comorbidity with body mass index (BMI) of 31.0 to 31.9 in adult, unspecified obesity type; Dietary counseling; Exercise counseling Social History Tobacco Use Types Packs/Day Years [...] not want or need it 10/11 Comments No Sex and Gender Information Value Date Recorded Sex Assigned at Female 06/12/2022 10:32 AM EDT Legal Sex Female 10:32 AM EDT Gender Identity Choose not to disclose 10:32 AM EDT Sexual Orientation Straight 06/12/2022 10 :32 AM EDT documented as of this encounter Last Filed Vital Signs Vital Sign Reading Time Taken Comments Blood Pressure 113/71 12/25/2024 8:44 AM EDT Pulse 88 12/25/2024 8:44 AM EDT Temperature 36.1 ??C (97 ??F) 12/25/2024 8:44 AM EDT Respiratory Rate 18 12/25/2024 8:44 AM EDT Oxygen Saturation 99% 12/25/2024 8:44 AM EDT Inhaled Oxygen Concentration - - Weight 60.8 kg (134 lb) 12/25/2024 8:44 AM EDT Height 146.1 cm (4' 9.5 ) 12/25/2024 8:44 AM EDT Body Mass Index 28.5 12/25/2024 8:44 AM EDT documented in this encounter Progress Notes * Lyndsey Beauchamp MD - 12/25/2024 8:30 AM EDT Subjective Patient ID: Nicol Lee is a 49 y.o. adult who presents for No chief complaint on file.. HPI Is here for f/u weight No new concerns Doing very well on Zepbound Review of Systems Constitutional: Negative. Respiratory: Negative. Negative for shortness of breath. Cardiovascular: Negative for chest pain and palpitations. Gastrointestinal: Negative. Genitourinary: Negative. Musculoskeletal: Negative for neck pain. Neurological: Negative for headaches. Objective Physical Exam Constitutional: Appearance: Normal appearance. Cardiovascular: Rate and Rhythm: Normal rate and regular rhythm. Pulses: Normal pulses. Heart sounds: Normal heart sounds. Pulmonary: Effort: Pulmonary effort is normal. Abdominal: General: Abdomen is flat. Neurological: Mental Status: Nicol is alert. Assessment/Plan Diagnoses and all orders for this visit: Hypothyroidism, unspecified type Comments: Cont levothyroxine Labs ordered today Orders: - Basic Metabolic Panel; Future - Lipid Panel, Standard; Future - Hepatic Function Panel; Future - TSH with Reflex to Free T4; Future Class 1 obesity without serious comorbidity with body mass index (BMI) of 31.0 to 31.9 in adult, unspecified obesity type Patient currently on pharmacotherapy to assist with management of Stephy weight. Starting weight: 203 lb Current weight: 134 lb Review continue lifestyle modifications. Patient was titrated [...] recommended reduction of 20-30% of maintenance calories; expressive therapist referral offered. Recommended to decrease soda and sugary beverage consumption. Recommended at least 20 g per meal of protein to assist with satiety. Recommended at least 150 min/week of moderate intensity exercise. - Basic Metabolic Panel; Future - Lipid Panel, Standard; Future - Hepatic Function Panel; Future - Tirzepatide-Weight Management (Zepbound) 2.5 MG/0.5ML solution auto-injector; Inject 0.5 mL (2.5 mg) under the skin 1 (one) time per week. Dietary counseling Exercise counseling Maintain a low-sodium diet (less than 2 grams per day). Maintain a regular cardiovascular exercise program. Advised to maintain a low-fat, low-cholesterol diet. documented in this encounter Plan of Treatment Upcoming Encounters Date Type Department Care Team (Late st Contact Info) Description 01/08/2025 3:30 PM EDT Clinical Support [facility] DIABETES/NTRN [address] [place], [place] [phone] [place], [place] [phone] Scheduled Orders Name Type Priority Associated Diagnoses Orde r Schedule Basic Metabolic Panel Lab Routine Hypothyroidism, unspecified type Class 1 obesity without serious comorbidity with body mass index (BMI) of 31.0 to 31.9 in adult, unspecified obesity type Expected: 12/25/2024 (Approximate), Expires: 12/25/2025 Lipid Panel, Standard Lab Routine Hypothyroidism, unspecified type Class 1 obesity without serious comorbidity with body mass index (BMI) of 31.0 to 31.9 in adult, unspecified obesity type Expected: 12/25/2024 (Approximate), Expires: 12/25/2025 Hepatic Function Panel Lab Routine Hypothyroidism, unspecified type Class 1 obesity without serious comorbidity with body mass index (BMI) of 31.0 to 31.9 in adult, unspecified obesity type Expected: 12/25/2024 (Approximate), Expires: 12/25/2025 TSH with Reflex to Free T4 Lab Routine Hypothyroidism, unspecified type Expected: 12/25/2024 (Approximate), Expires: 12/25/2025 documented as of this encounter Visit Diagnoses Diagnosis Hypothyroidism, unspecified type- Primary Class 1 obesity without serious comorbidity with body mass index (BMI) of 31.0 to 31.9 in adult, unspecified obesity type Dietary counseling Dietary surveillance and counseling Exercise counseling documented in this encounter Additional Health Concerns Assessment Noted Time PHQ-9 Depression Total Score: 0 10/24/19 25 8:56 AM EDT documented as of this encounter Care Teams Radiology Receptionist Relationship Specialty Start Date End Date Lyndsey Beauchamp MD [address] [place] [id number] PCP - General Family Medicine 07/03/17 documented as of this encounter
--- OUTSIDE RECORDS SUMMARY | 2024-12-25 09:37 | XMS_ITS | Encounter Summary ---
Author Organization [employer] Address [address] [facility] [address] [place] [address] Care Team Providers Care Human Resources Representative Name Role Phone Lyndsey Beauchamp MD Primary Care Provider [phone] Encounter Details Date Type Department Care Team (Latest Contact Info) Description 01/21/2019 Abstract [facility] CONVERSIONS Dental, Provider, DDS Social History Tobacco [...] Description 01/08/2025 3:30 PM EDT Clinical Support [facility] DIABETES/NTRN [address] [place] [address] [place] [address] documented as of this encounter Visit Diagnoses Not on filedocumented in this encounter Care Teams Human Resources Representative Relationship Specialty Start Date End Date Lyndsey Beauchamp MD [address] [place], [place] [phone] PCP - General Family Medicine 07/03/17 documented as of this encounter
--- OUTSIDE RECORDS SUMMARY | 2024-12-25 09:37 | XMS_ITS | Encounter Summary ---
Author Organization [employer] Address [address] [facility] [address] [place] [address] Care Team Providers Care Supreme [address] Justice Name Role Phone Lyndsey Beauchamp MD Primary Care Provider [phone] Encounter Details Date Type Department Care Team (Latest Contact Info) Description 12/25/2024 Travel Social History Tobacco Use Types Packs/Day [...] Description 01/08/2025 3:30 PM EDT Clinical Support [facility] DIABETES/NTRN [address] [place] [address] [place] [address] documented as of this encounter Visit Diagnoses Not on filedocumented in this encounter Additional Health Concerns Assessment Noted Time PHQ-9 Depression Total Score: 0 10/24/19 25 8:56 AM EDT documented as of this encounter Care Teams Supreme [address] Justice Relationship Specialty Start Date End Date Lyndsey Beauchamp MD [address] [place] [address] PCP - General Family Medicine 07/03/17 documented as of this encounter
--- OUTSIDE RECORDS SUMMARY | 2024-12-25 09:37 | XMS_ITS | Clinical Summary ---
Author Organization [employer] Address [address] [place] [address] 7[address] [place] [address] Care Team Providers Care Sheather Name Role Phone Lyndsey Beauchamp MD Primary Care Provider [phone] Allergies Active Allergy Reactions Criticality Noted Date Comments Aspirin Hives 10/17/2017 Other reaction(s): Burning Eyes, Hives / Skin Rash Medications venlafaxine XR (Effexor XR) 75 MG 24 hr capsule TAKE ONE CAPSULE EVERY MORNING WITH 150mg CAPSULE 09/05/19 23 Active venlafaxine XR (Effexor XR) 150 MG 24 hr capsule TAKE ONE CAPSULE EVERY MORNING WITH FOOD FOR ANXIETY AND MOOD 09/05/19 23 Active pantoprazole (ProtoNix) 40 MG EC tablet Take 40 mg by mouth in the morning. 09/05/19 23 Active LORazepam (Ativan) 1 MG tablet TAKE ONE TABLET TWICE DAILY FOR ANXIETY 09/05/19 23 Active doxepin (SINEquan) 50 MG capsule Take 50 mg by mouth at bedtime. 09/05/19 23 Active doxepin (SINEquan) 100 MG capsule Take 100 mg by mouth at bedtime. 09/05/19 23 Active divalproex (Depakote) 500 MG EC tablet Take 500 mg by mouth 3 times daily. 09/05/19 23 Active cholecalcifero l (Vitamin D-3) 125 MCG (5000 UT) capsule Take 125 mcg by mouth in the morning. 07/24/20 22 Active ARIPiprazole (Abilify) 10 MG tablet Take 10 mg by mouth in the morning. 09/05/19 23 Active ergocalciferol (Vitamin D2) 1.25 MG (02990 UT) capsuleIndicat ions:Vitamin D deficiency Take 1 capsule (1.25 mg) by mouth 1 (one) time per week. 15 capsule 09/22/19 23 Active omega-3 (Fish Oil) 1000 MG capsuleIndicat ions:Hypertrig lyceridemia TAKE ONE CAPSULE TWICE DAILY 180 capsule 1 01/23/20 23 Active levothyroxine (Synthroid, Levoxyl) 25 MCG tabletIndicati ons:Hypothyroi dism, unspecified type TAKE ONE TABLET EVERY MORNING 30 TO 60 MINUTES BEFORE BREAKFAST 90 tablet 04/17/20 23 Active fluticasone (Flonase) 50 MCG/ACT nasal sprayIndicatio ns:Rhinitis, unspecified type Administer 2 sprays into each nostril 2 times daily. Shake gently. Before first use, prime pump. After use, clean tip and replace cap. 16 g 11 07/03/20 23 Active cetirizine (ZyrTEC) 10 MG tabletIndicati ons:Rhinitis, unspecified type TAKE ONE TABLET BY MOUTH EVERY MORNING 90 tablet 1 12/23/19 25 Active Tirzepatide-We ight Management (Zepbound) 2.5 MG/0.5ML solution auto-injectorI ndications:Cla ss 1 obesity without serious comorbidity with body mass index (BMI) of 31.0 to 31.9 in adult, unspecified obesity type Inject 0.5 mL (2.5 mg) under the skin 1 (one) time per week. 2 mL 12/26/19 026 Active cetirizine (ZyrTEC) 10 MG tabletIndicati ons:Rhinitis, unspecified type Take 1 tablet (10 mg) by mouth Once per day. 90 tablet 1 04/18/20 24 025 Discontinued Tirzepatide-We ight Management (Zepbound) 2.5 MG/0.5ML solution auto-injector Inject 0.5 mL (2.5 mg) under the skin 1 (one) time per week. 2 mL 07/17/20 24 025 Discontinued(Re order (will not trigger notification to Pharmacy)) Tirzepatide-We ight Management (Zepbound) 5 MG/0.5ML solution Inject 5 mg under the skin 1 (one) time per week. 2 mL 3 10/24/19 25 05/02/2 025 Discontinued(Th erapy completed) Active Problems Problem Noted Date Diagnosed Date Depression 02/22/2024 Hypothyroidism 03/20/2018 Encounters Date Type Department Care Team Description 12/25/2024 8:30 AM EDT Office Visit [facility] [address] [place] [address] Lyndsey Beauchamp MD Hypothyroidism, unspecified type (Primary Dx); Class 1 obesity without serious comorbidity with body mass index (BMI) of 31.0 to 31.9 in adult, unspecified obesity type; Dietary counseling; Exercise counseling 12/25/2024 Travel 12/19/2024 Refill [facility] [address] [place] [address] Lyndsey Beauchamp MD Rhinitis, unspecified type 12/17/2024 Patient Outreach [facility] [address] [place] [address] Lyndsey Beauchamp MD Pre-visit Planning (Pre visit planning LVM ) 11/27/2024 3:30 PM EDT Clinical Support [facility] DI[facility]ET[facility]/NTRN [address] [place] [address] Aure Braga, ORIANA Class 2 obesity due to excess calories in adult, unspecified BMI, unspecified whether serious comorbidity present (Primary Dx) 11/27/2024 Travel 11/20/2024 2:30 PM EDT Office Visit [facility] [address], [place] [phone] Lucho, Rosalinda, OD White without pressure of peripheral retina of both eyes (Primary Dx); Presbyopia 11/20/2024 Travel 10/28/2024 Telephone [facility] [address] [place] [address] Lyndsey Beauchamp MD Results 10/24/2024 Population Health Risk Score [facility] ([facility] Department [address] [phone] Provider, Population Health Generic 10/23/2024 9:00 AM EDT Telemedicine [facility] [address] [place], [place] [phone] Lyndsey Beauchamp MD Hypercholesteremia (Primary Dx); Hypothyroidism, unspecified type; Obesity (BMI 30-39.9) 10/23/2024 Travel 10/09/2024 3:00 PM EST Clinical Support [facility]N [address] [place] [address] Class 1 obesity due to excess calories without serious comorbidity with body mass index (BMI) of 33.0 to 33.9 in adult (Primary Dx) 10/09/2024 Travel from Last 3 Months Immunizations Immunization Administration Dates Next Due Tdap 12/10/2017 Social [...] Mass Index 28.5 12/25/2024 8:44 AM EDT Plan of Treatment Upcoming Encounters Date Type Department Care Team (Late st Contact Info) Description 01/08/2025 3:30 PM EDT Clinical Support [facility] [address] [place] [address] Aure Braga, RD [address] [place], [place] [phone] Health Maintenance Due Date Last Done Comments CT Colonography 1975 Colonoscopy 1975 Colorectal Cancer Screening 1975 FIT DNA/Cologuard 1977 FIT 1975 FOBT 1975 HIV Screening 1975 Sigmoidoscopy 1975 Family Planning (PISQ) 1992 Hepatitis C Screening 10/13/1995 Hepatitis B Vaccines (1 of 3 - 19+ 3-dose series) 1996 COVID-19 Vaccine ( season) 2024 08/23/2021, 01/31/2021, 01/07/2021 Influenza Vaccine (#1) 2024 07/14/2021, 2017 Pap Smear 07/19/2024 07/19/2021 Alcohol/Substance Use Screening 10/23/2025 10/23/2024 Depression Screening 10/23/2025 10/23/2024, 10/24/19 25 SDOH Screening 10/23/2025 10/23/2024 Tobacco Screening 12/25/2025 12/25/2024 Cervical Cancer Screening 07/19/2026 HPV/Cotest 07/19/2026 07/19/2021, 01/22/2018 Mammogram 10/10/2026 10/10/2024, 08/2020, 01/15/2019, Additional history exists Zoster Vaccines (1 of 2) 10/13/2027 DTaP/Tdap/Td Vaccines (2 - Td or Tdap) 12/11/2027 12/10/2017 Lipid Panel 10/24/2029 10/24/2024, 12/2023, 02/22/2024, Additional history exists RSV Patients and Patients [...] patient's age to complete this topic Meningococcal B Vaccine Aged Out No l onger eligible based on patient's age to complete [...] Diagnosis Comments TSH W/REFLEX TO FT4 Routine 10/24/2024 8 :57 AM EDT Hypothyroidism, unspecified type HEPATIC FUNCTION PANEL Routine 8:57 AM EDT Hypercholesteremia LIPID PANEL, STANDARD Routine 10/24/2024 8:57 AM EDT Hypercholesteremia BASIC METABOLIC PANEL Routine 10/24/2024 8:57 AM EDT Hypercholesteremia BI MAMMOGRAM SCREENING TOMOSYNTHESIS BILATERAL Routine 10/10/2024 3:02 PM EST Encounter for screening mammogram for breast cancer THINPREP IMAGING PAP AND HPV MRNA E6/E7, WITH CT/NG, TRICHOMONAS Routine 07/19/2021 1:15 PM EST from Last 3 Months or Most Recently Relevant to Health Maintenance Results * TSH with Reflex to Free T4 (10/24/2024 8:57 AM EDT) TSH reflex Free T4 2.10 0.32 - 4.0 uIU/mL [facility] Blood Venous blood specimen / Unknown 10/24/2024 8:57 AM EDT 10/24/2024 2:44 PM EDT Lyndsey Beauchamp MD LAB BLOOD ORDERABLES Final Resul t [facility] [address] [place] [address] [phone] * Hepatic Function Panel (10/24/2024 8:57 AM EDT) Bilirubin, Total 0.6 0.0 - 1.0 mg/dL [facility] Bilirubin, Direct 0.2 0.0 - 0.5 mg/dL [facility] Aspartate Amino Transferase 20 5 - 31 U/L [facility] Alanine Aminotransferase 16 0 - 31 U/L [facility] Total Protein 7.9 6.5 - 8.0 g/dL [facility] Albumin Level 4.4 3.5 - 5.0 g/dL [facility] Alkaline Phosphatase 57 39 - 117 U/L [facility] Blood Venous blood specimen / Unknown 10/24/2024 8:57 AM EDT 10/24/2024 2:44 PM EDT Lyndsey Beauchamp MD LAB BLOOD ORDERABLES Final Resul t Performing Organization Address [facility] Co de Phone Number [facility] [address] [place] [address] [phone] * (ABNORMAL) Lipid Panel, Standard (10/24/2024 8:57 AM EDT) Triglycerides 108 <150 mg/dL [facility] Comment:Desirable Triglyceri de: less than 150 mg/dLBorderline High Triglyceride 150-199 mg/dLHigh Triglyceride: 200-499 mg/dLVery High Triglyceride: greater than or equal to 5OO mg/dL Cholesterol 229(H) <200 mg/dL [facility] Comment:Desirable Cholestero l: less than 200 mg/dLBorderline High Cholesterol: 200-239 mg/dLHigh Cholesterol: greater than 239 mg/dL LDL Cholesterol Calculated 153(H) <100 mg/dL [facility] Comment:Desirable LDL: less than 100 mg/dLNear Optimal/Above Optimal LDL: 110- 129 mg/dLBorderline High LDL: 130-159 mg/dLHigh LDL: 160-189 mg/dLVery High LDL: greater than or equal to 190 mg/dL HDL Cholesterol 55 >40 mg/dL [facility] Comment:Desirable HDL: great er than 40 mg/dL Note: This HDL assay may give artificially low results in patients with liver disease. Blood Venous blood specimen / Unknown 10/24/2024 8:57 AM EDT 10/24/2024 2:44 PM EDT Lyndsey Beauchamp MD LAB BLOOD ORDERABLES Final Resul t Performing Organization Address [facility] Co de Phone Number [facility] [address] [place] [phone] [phone] * Basic Metabolic Panel (10/24/2024 8:57 AM EDT) Sodium 142 135 - 145 mmol/L [facility] Potassium 4.1 3.3 - 5.1 mmol/L [facility] Chloride 107 96 - 108 mmol/L [facility] Carbon Dioxide 26 22 - 29 mmol/L [facility] Anion Gap 13 12 - 20 [facility] Urea Nitrogen (BUN) 14 9 - 16 mg/dL [facility] Creatinine, Serum 0.64 0.5 - 1.4 mg/dL [facility] Estimated Glomerular Filt Rate >60 [facility] Comment:Chronic Kidney Disea se: Estimated GFR < 60 mL/min/1.84g5Aobcao Kidney Disease: Estimated GFR < 15 mL/min/1.73m2 Glucose 72 60 - 115 mg/dL [facility] Calcium 9.6 8.4 - 10.2 mg/dL [facility] Blood Venous blood specimen / Unknown 10/24/2024 8:57 AM EDT 10/24/2024 2:44 PM EDT us Lyndsey Beauchamp MD LAB BLOOD ORDERABLES Final Resul t [facility] [address] [place] [address] [phone] * BI Mammogram Screening Tomosynthesis Bilateral (10/10/2024 3:02 PM EST) Anatomical Region Laterality Modality Breast Bilateral Mammography 10/10/2024 3:02 PM EST Narrative 10/14/2024 1:52 PM EST ? [facility] ? [address] ?[place] [address] ? Mammography Report ? Signed ? Patient: Gillis Lee,Susky ?MR#: [id number] ?? [id number] ? : 1975 ?Acct:[id number] ? Age/Sex: 48 / F ?ADM Date: /28/25 ? Loc: HO.MAMMO ? Attending Dr: Lyndsey Beauchamp MD ? Ordering Physician: Lyndsey Beauchamp MD ?Results: 1Negati ?? ve ? Date of Service: 10/10/24 ?Follow Up: 1 Year From Orig ?? inal Mammogram ? Procedure(s): MM tomosynthesis screening BI ?? Accession Number(s): [id number] ? cc: Lyndsey Beauchamp MD ? EXAMINATION: [...] DO in OV> ? 10/14/24 1349 ? DD/ 1502 ? TD/TT: 10/10/24 1515 ? Rebar Fabricator: ? Procedure Note Donotuseinterpreter, Image - 10/14/2024 [facility] [address] [place] [address] Mammography Report Signed Patient: Nicol RosenbaumMR#: [id number] : 1975Acct:[id number] Age/Sex: 48 / FADM Date: 10/10/24 Loc: HO.MAMMO Attending Dr: Lyndsey Beauchamp MD Ordering Physician: Lyndsey Beauchamp MDResults: 1Negati ve Date of Service: 10/10/24Follow Up: 1 Year From Orig inal Mammogram Procedure(s): MM tomosynthesis screening BI Accession Number(s): [id number] cc: Lyndsey Beauchamp MD EXAMINATION: MM SCREENING [...] 10/14/24 1349 DD/ 1502 TD/TT: 10/10/24 1515 Rebar Fabricator: Lyndsey Beauchamp MD IMG BI PROCEDURES Final Result * THINPREP TIS PAP AND HPV mRNA E6/E7, CT/NG, TRICH (07/19/2021 1:15 PM EST) Chlamydia trachomatis RNA, TMA, Urogenital NOT DETECTED NOT DETECTED [facility] Clinical Information: None given Z124 Z113 [facility] COMMENT SEE COMMENT [facility] Comment: The analytical performance characteristics of this assay, when used to test SurePath(TM) specimens have been determined by [email or web address]. The modifications have not been cleared or approved by the FDA. This assay has been validated pursuant to the CLIA regulations and is used for clinical purposes. ?? For additional information, please refer to https://ADTZ.CastingDB/faq/TZZ686 (This link is being provided for information/ [...] has been evaluated with computer assisted technology. [facility] Dairy Farmer: SEE COMMENT [facility] Comment: ED, CT(ASCP) CT screening location: ?? [facility] ?? [address] [place] [address] ?? [place] [address] HPV nRNA E6/E7 Not Detected Not Detected [facility] Comment: Methodology: Clearing Inspector-Mediated Amplification This assay detects E6/E7 viral messenger RNA (mRNA) from 14 high-risk HPV types (16,18,31,33,35,39,45,51,52,56,58,59,66,68). ? The analytical performance characteristics of this assay have been determined by [email or web address]. The modifications have not been cleared or approved by the FDA. This assay has been validated pursuant to the CLIA regulations and is used for clinical purposes. ?? For additional information, please refer to http://ADTZ.CastingDB/faq/VGW160j6 (This link if provided for information/ educational purposes only.) Interpretation/Re sult: Negative for intraepithelial lesion or malignancy. [facility] LMP: STEPHANIE AT 43YRS OLD FO [facility] Neisseria gonorrhoeae RNA, TMA, Urogenital NOT DETECTED NOT DETECTED [facility] Prev. BX: NONE GIVEN [facility] Prev. PAP: NIL/NEG 2017 [facility] SOURCE: Cervix [facility] Statement Of Adequacy: SEE COMMENT [facility] Comment: Satisfactory for evaluation. Endocervical/transformation zone component absent. Trichomonas vaginalis, QL, TMA, PAP Vial NOT DETECTED NOT DETECTED [facility] Comment: The analytical performance characteristics of this assay have been determined by [email or web address]. The modifications have not been cleared or approved by the FDA. This assay has been validated pursuant to the CLIA regulations and is used for clinical purposes. ?? For additional information, please refer to http://education.CastingDB/ faq/Trichomonastma (This link is being provided for information/ educational purposes only.) ?? 07/19/2021 1:15 PM EST Terese CASTILLO LAB PATHOLOGY ORDERABLES Final Result [facility] [address] from Last 3 Months or Most Recently Relevant to Health Maintenance Insurance [facility] PPO * Guarantor: Nicol Rosenbaum Account Type Relation to Patient Date of Phone Billing Address Personal/Family Self [address] [facility] [address] [place] [address] * Guarantor: Nicol Rosenbaum Account Type Relation to Patient Date of Phone Billing Address Personal/Family Self [address] [facility] [address] [place] [address] Care Teams Sheather Relationship Specialty Start Date End Date Lyndsey Beauchamp MD [address] [place] [address] [place] [address] PCP - General Family Medicine 07/03/17
--- OUTSIDE RECORDS SUMMARY | 2024-12-25 09:37 | XMS_ITS | Encounter Summary ---
Author Organization [employer] Address [address] [facility] 7[address] [place] [address] Care Team Providers Care [employer] Trader Name Role Phone Lyndsey Beauchamp MD Primary Care Provider [phone] Reason for Visit * Reason Comments Med Refill Encounter Details Date Type Department Care Team ([facility] st Contact Info) Description 12/19/2024 Refill [facility] [address] [place], [place] [phone] Lyndsey Beauchamp MD [address] [place] [address] Rhinitis, unspecified type Social History Tobacco Use Types Packs/Day Years [...] Description 01/08/2025 3:30 PM EDT Clinical Support [facility] DI[facility]/NTRN [address] [place], [place] [phone] Aure [address] [place] [address] documented as of this encounter Visit Diagnoses Diagnosis Rhinitis, unspecified type documented in this encounter Additional Health Concerns Assessment Noted Time PHQ-9 Depression Total Score: 0 10/24/19 25 8:56 AM EDT documented as of this encounter Care Teams [employer] Trader Relationship Specialty Start Date End Date Lyndsey Beauchamp MD [address] [place] [address] PCP - General Family Medicine 07/03/17 documented as of this encounter
[2024-12-25 12:39] LABS: Alanine Aminotransferase 12 U/L (0-31); Albumin Level 4.1 g/dL (3.5-5.0); Alkaline Phosphatase 49 U/L (39-117); Anion Gap 10 (12-20); Aspartate Amino Transferase 21 U/L (5-31); Bilirubin Direct 0.2 mg/dL (0.0-0.5); Bilirubin Total 0.6 mg/dL (0.0-1.0); Blood Urea Nitrogen 16 mg/dL (9-16); Calcium 9.3 mg/dL (8.4-10.2); Carbon Dioxide 27 mmol/L (22-29); Chloride 110 mmol/L (96-108); Cholesterol 252 mg/dL (<200); Estimated Glomerular Filt Rate > 60; Glucose Random 98 mg/dL (60-115); HDL Cholesterol 48 mg/dL (>40); LDL Cholesterol Calculated 181 mg/dL (<100); Potassium 3.7 mmol/L (3.3-5.1); Sodium 143 mmol/L (135-145); Triglycerides 119 mg/dL (<150)
[2024-12-25 12:54] LABS: TSH reflex Free T4 2.17 uIU/mL (0.32-4.0)
== END 2024-12-25 09:05 | disposition home or self-care (01) ==
LOC: CF 09:04
PROVIDERS: Visit Provider Student in an Organized Health Care Education/Training Program
DX: E03.9 Hypothyroidism, unspecified (principal); E66.811 Obesity, class 1; Z68.31 Body mass index [BMI] 31.0-31.9, adult
CPT/HCPCS: 36415; 80048; 80061; 80076; 84443